=== PATIENT | male | born 1940 | race Caucasian/White ===

== ENCOUNTER 2021-01-04 12:28 | Emergency (ER) | payer MEDICARE ==
[~2021-01-04] VITALS: Ht 180.3 cm; Wt 59.0 kg
[2021-01-04 14:03] LABS: BASOPHILS ABSOLUTE AUTO 0.03 K/mm3 (0.00-0.23); BASOPHILS PERCENT AUTO 0 % (0-2); EOSINOPHILS ABSOLUTE AUTO 0.01 K/mm3 (0.00-0.68); EOSINOPHILS PERCENT AUTO 0 % (0-6); Hematocrit 39.8 % (37.0-53.0); Hemoglobin 13.1 g/dL (13.5-17.5); IMMATURE GRAN ABSOLUTE AUTO 0.04 K/mm3 (0.00-0.10); IMMATURE GRAN PERCENT AUTO 0 % (0-1); LYMPHOCYTES ABSOLUTE AUTO 0.78 K/mm3 (0.84-5.20); LYMPHOCYTES PERCENT AUTO 8 % (21-46); MONOCYTES ABSOLUTE AUTO 0.56 K/mm3 (0.16-1.47); MONOCYTES PERCENT AUTO 6 % (4-13); Mean Corpuscular HGB 31.3 pg (26.0-34.0); Mean Corpuscular HGB Conc 32.9 g/dL (31.5-36.5); Mean Corpuscular Volume 95 fL (80-100); Mean Platelet Volume 10.2 fL (9.1-12.4); NEUTROPHILS ABSOLUTE AUTO 7.87 K/mm3 (1.96-9.15); NEUTROPHILS PERCENT AUTO 85 % (41-73); Platelet Count 287 K/mm3 (150-400); RDW Coefficient Variation 13.3 % (11.7-14.2); RDW Standard Deviation 46.5 fL (35.1-46.3); Red Blood Cell Count 4.19 M/mm3 (4.30-5.90); White Blood Cell Count 9.29 K/mm3 (4.00-11.30)
[2021-01-04 14:25] LABS: Alanine Aminotransfer (ALT/SGP 25 U/L (12-78); Albumin, Blood 3.9 g/dL (3.4-5.0); Albumin/Globulin Ratio 1.1 (0.8-1.8); Alk Phos 95 U/L (50-136); Anion Gap 7 mmol/L (6-16); Aspartate Aminotrans (AST/SGOT 28 U/L (12-37); Bilirubin, Total 0.8 mg/dL (0.1-1.0); Blood Urea Nitrogen 21 mg/dL (8-24); Bun/Creatinine Ratio 23.4 (12.0-20.0); CO2, Blood 27 mmol/L (21-32); Calcium, Blood 9.1 mg/dL (8.5-10.1); Chloride, Blood 105 mmol/L (98-108); Globulin, Blood 3.7 g/dL (2.2-4.0); Glomerular Filtration Rate >60 (60-); Glucose, Blood 116 mg/dL (70-99); Potassium, Blood 4.6 mmol/L (3.5-5.5); Sodium, Blood 139 mmol/L (136-145); Total Protein, Blood 7.6 g/dL (6.4-8.2)
[2021-01-04 16:22] LABS: Source, Urine Clean Catch
[2021-01-04 16:26] LABS: Appearance, Urine Hazy (Clear); Bilirubin, Urine Neg (Neg); Blood, Urine 4+ (Neg); Color, Urine Yellow (P-Yellow); Glucose Qualitative, Urine Neg (Neg); Ketones, Urine Neg (Neg); Leukocyte Esterase, Urine Neg (Neg); Nitrite, Urine Neg (Neg); Protein, Urine Neg (Neg); Specific Gravity, Urine 1.015 (1.003-1.022); Urobilinogen, Urine NORM (Normal)
[2021-01-04 16:39] LABS: Bacteria Rare /hpf; Red Blood Cells, Urine 25-50 /hpf (0-2); Squamous Epithelial Cells Few /hpf (Few); White Blood Cells, Urine 0-2 /hpf (0-5)
[2021-01-04] MEDS ORDERED: TAMS.4ER PO (17:40)
== END 2021-01-04 18:06 | disposition home or self-care (01) ==
LOC: ER 12:28
PROVIDERS: Physician Assistant
DX: R33.8 Other retention of urine (principal); R31.29 Other microscopic hematuria; N13.30 Unspecified hydronephrosis
CPT/HCPCS: 51701; 74177; 80053; 81001; 83690; 85025; 99284-25; A9270; Q9967

== ENCOUNTER 2021-02-10 10:46 | Emergency (ER) | payer MEDICARE ==
[~2021-02-10] VITALS: Ht 180.3 cm; Wt 48.5 kg
[~2021-02-10 10:46] MED LIST: TAMS.4ER PO
[2021-02-10 13:00] LABS: Source, Urine Clean Catch
[2021-02-10 13:06] LABS: Appearance, Urine Clear (Clear); Bilirubin, Urine Neg (Neg); Blood, Urine 3+ (Neg); Color, Urine Yellow (P-Yellow); Glucose Qualitative, Urine Neg (Neg); Ketones, Urine Neg (Neg); Leukocyte Esterase, Urine 2+ (Neg); Nitrite, Urine Neg (Neg); Protein, Urine 1+ (Neg); Specific Gravity, Urine 1.015 (1.003-1.022); Urobilinogen, Urine NORM (Normal)
[2021-02-10 13:20] LABS: Bacteria Mod /hpf; Squamous Epithelial Cells Rare /hpf (Few)
[2021-02-10] MEDS ORDERED: CEPH500 PO (13:28)
== END 2021-02-10 15:00 | disposition home or self-care (01) ==
LOC: ER 10:46
PROVIDERS: Physician Assistant
DX: N40.1 Benign prostatic hyperplasia with lower urinary tract symptoms (principal); N13.8 Other obstructive and reflux uropathy; Z79.899 Other long term (current) drug therapy; Z87.891 Personal history of nicotine dependence
CPT/HCPCS: 51702; 81001; 87077; 87086; 87186; 99283-25; A9270

== ENCOUNTER 2021-03-26 18:28 | Inpatient (IN) | payer MEDICARE, OTHER ==
[~2021-03-26] VITALS: Ht 180.3 cm; Wt 52.0 kg
[~2021-03-26 18:28] MED LIST changes: +CEPH500 PO
[2021-03-26 19:32] LABS: BASOPHILS ABSOLUTE AUTO 0.03 K/mm3 (0.00-0.23); BASOPHILS PERCENT AUTO 0 % (0-2); EOSINOPHILS PERCENT AUTO 0 % (0-6); Hematocrit 42.6 % (37.0-53.0); IMMATURE GRAN ABSOLUTE AUTO 0.06 K/mm3 (0.00-0.10); IMMATURE GRAN PERCENT AUTO 0 % (0-1); LYMPHOCYTES ABSOLUTE AUTO 0.65 K/mm3 (0.84-5.20); LYMPHOCYTES PERCENT AUTO 4 % (21-46); MONOCYTES ABSOLUTE AUTO 0.82 K/mm3 (0.16-1.47); MONOCYTES PERCENT AUTO 5 % (4-13); Mean Corpuscular HGB 30.9 pg (26.0-34.0); Mean Corpuscular HGB Conc 32.9 g/dL (31.5-36.5); Mean Corpuscular Volume 94 fL (80-100); Mean Platelet Volume 10.2 fL (9.1-12.4); NEUTROPHILS ABSOLUTE AUTO 14.36 K/mm3 (1.96-9.15); NEUTROPHILS PERCENT AUTO 90 % (41-73); Platelet Count 283 K/mm3 (150-400); RDW Coefficient Variation 13.3 % (11.7-14.2); RDW Standard Deviation 46.3 fL (35.1-46.3); Red Blood Cell Count 4.53 M/mm3 (4.30-5.90); White Blood Cell Count 15.92 K/mm3 (4.00-11.30)
[2021-03-26 19:51] LABS: Albumin, Blood 3.9 g/dL (3.4-5.0); Bilirubin, Total 0.6 mg/dL (0.1-1.0); Bun/Creatinine Ratio 25.4 (12.0-20.0); Creatinine, Blood 1.26 mg/dL (0.60-1.20); Globulin, Blood 3.9 g/dL (2.2-4.0); Potassium, Blood 5.4 mmol/L (3.5-5.5); Total Protein, Blood 7.8 g/dL (6.4-8.2)
[2021-03-26 20:19] LABS: Source, Urine Clean Catch
[2021-03-26 20:23] LABS: Appearance, Urine Cloudy (Clear); Bilirubin, Urine Neg (Neg); Blood, Urine Neg (Neg); Color, Urine Yellow (P-Yellow); Glucose Qualitative, Urine Neg (Neg); Ketones, Urine Neg (Neg); Leukocyte Esterase, Urine 3+ (Neg); Nitrite, Urine Pos (Neg); Protein, Urine 4+ (Neg); Specific Gravity, Urine 1.015 (1.003-1.022); Urobilinogen, Urine NORM (Normal)
[2021-03-26 20:32] LABS: Bacteria Many /hpf; Triple Phosphate Crystals Many /hpf
[2021-03-26 20:34] LABS: Amorphous Light (0-Heavy); Red Blood Cells, Urine 0-2 /hpf (0-2)
[2021-03-26 20:35] LABS: Squamous Epithelial Cells Rare /hpf (Few)
[2021-03-27 05:29] LABS: BASOPHILS ABSOLUTE AUTO 0.01 K/mm3 (0.00-0.23); BASOPHILS PERCENT AUTO 0 % (0-2); EOSINOPHILS PERCENT AUTO 0 % (0-6); Hemoglobin 11.3 g/dL (13.5-17.5); IMMATURE GRAN ABSOLUTE AUTO 0.04 K/mm3 (0.00-0.10); IMMATURE GRAN PERCENT AUTO 0 % (0-1); LYMPHOCYTES ABSOLUTE AUTO 0.35 K/mm3 (0.84-5.20); LYMPHOCYTES PERCENT AUTO 3 % (21-46); MONOCYTES ABSOLUTE AUTO 0.65 K/mm3 (0.16-1.47); MONOCYTES PERCENT AUTO 6 % (4-13); Mean Corpuscular HGB 31.3 pg (26.0-34.0); Mean Corpuscular HGB Conc 33.2 g/dL (31.5-36.5); Mean Corpuscular Volume 94 fL (80-100); Mean Platelet Volume 10.3 fL (9.1-12.4); NEUTROPHILS ABSOLUTE AUTO 9.21 K/mm3 (1.96-9.15); NEUTROPHILS PERCENT AUTO 90 % (41-73); Platelet Count 231 K/mm3 (150-400); RDW Coefficient Variation 13.6 % (11.7-14.2); Red Blood Cell Count 3.61 M/mm3 (4.30-5.90); White Blood Cell Count 10.26 K/mm3 (4.00-11.30)
[2021-03-27 05:40] LABS: Alanine Aminotransfer (ALT/SGP 20 U/L (12-78); Albumin, Blood 3.1 g/dL (3.4-5.0); Albumin/Globulin Ratio 0.9 (0.8-1.8); Alk Phos 90 U/L (50-136); Anion Gap 5 mmol/L (6-16); Aspartate Aminotrans (AST/SGOT 28 U/L (12-37); Bilirubin, Total 0.4 mg/dL (0.1-1.0); Blood Urea Nitrogen 36 mg/dL (8-24); CO2, Blood 26 mmol/L (21-32); Calcium, Blood 8.6 mg/dL (8.5-10.1); Chloride, Blood 105 mmol/L (98-108); Creatinine, Blood 1.09 mg/dL (0.60-1.20); Globulin, Blood 3.3 g/dL (2.2-4.0); Glomerular Filtration Rate >60 (60-); Glucose, Blood 147 mg/dL (70-99); Potassium, Blood 4.5 mmol/L (3.5-5.5); Sodium, Blood 136 mmol/L (136-145); Total Protein, Blood 6.4 g/dL (6.4-8.2)
--- NOTE | 2021-03-27 16:50 | NUR ---
Mr Salas Barr is a 80 year old male with a history of enlargement of prostate and chronic maya catheter used who is admitted with lower abdominal pain. PER ER Report patient was initially presented with abdominal pain and buring at pelvic area. ER evaluation indicate lactic acid of 4.3 , WBC 97620, UA shows 3+ leukocytes esterase and cloudy urine , CT of abodmen and pelvic shows cystitis. patient was diagnosed with UTI and sepsis. she was transfered to medical floor for further evaluation and treatment. During admission assessment , patient is alert and oriented x3 with mild confusion. He reports that abdomen pain started on Angust 10 when he was brought to [facility] for assesstment and treatment . Reports that he was subsequently diagnozed with enlarged prostate and has been taking medication one pill a day . States that he sometimes forgot to take his medication. Described pain as buring at the lower abdomen and the groin area. Patient look malnourished and reports that meals on wheel sometimes comes to deliver food at his trailer where he currently live with his nephew. Denies any headache , dizziness , chestpain , or nausea . Patient was oriented to his room and how to use call light. Cardiac ( Tele) monitor was placed . SBP above 90.On room air,no SOB noted. Mild skin opening noted at coccyx , miplex was applied. Maya cath in place, draining clear yellow urine. Continue to monitor.
--- NOTE | 2021-03-28 04:57 | NUR ---
80 year old MAle with urinary obstruction indwelling maya cath since 12/2020 has sepsis UTI. Maya changed in ER & on abx to tx. C & S pending. PT recieved 1.5 l NS on medical floor. 650 ml urine out. ABD CT done. Shows recal impaction & PT says hx of chronic constipation but doesnt take daily bowel care. Prune juice given senna Colace MOM & dulcolax rectal suppository. Very thin with major WT loss. Alert pleasant has Nephew who lives with him, needs assist with care. Await response from bowel care. PT drank multiple ensures. Likes puddings.
--- NOTE | 2021-03-28 06:44 | NUR ---
PT had large pelleted stool about a hour after dulcolax suppository. Unsteady on feel has maya cath used bedside commode, bed alarm.
--- NOTE | 2021-03-28 18:31 | NUR ---
Alert and oriented x3 , able to make needs known. C/O abodmen pain , described pain as gas pain 01/04, received a new order for simethicone 80 mg po , it was given and patient expressed relief. vital signs are stable. Liriano cath is patent with clear yellow urine. Patient is malnourished and was encouraged to increase po fluid and food intake.Tele monitor on ,normal sinus ryhthm at 80. Denies any chest pain, dizzines and SOB. Continue on bowel med . call appropriately and call light within reach. Continue to monitor.
--- NOTE | 2021-03-29 01:57 | NUR ---
rt wrist iv saline lock present not doc
[2021-03-29 05:02] LABS: BASOPHILS ABSOLUTE AUTO 0.02 K/mm3 (0.00-0.23); BASOPHILS PERCENT AUTO 0 % (0-2); EOSINOPHILS ABSOLUTE AUTO 0.08 K/mm3 (0.00-0.68); EOSINOPHILS PERCENT AUTO 1 % (0-6); Hematocrit 31.6 % (37.0-53.0); Hemoglobin 10.4 g/dL (13.5-17.5); IMMATURE GRAN ABSOLUTE AUTO 0.01 K/mm3 (0.00-0.10); IMMATURE GRAN PERCENT AUTO 0 % (0-1); LYMPHOCYTES ABSOLUTE AUTO 0.45 K/mm3 (0.84-5.20); LYMPHOCYTES PERCENT AUTO 8 % (21-46); MONOCYTES ABSOLUTE AUTO 0.56 K/mm3 (0.16-1.47); MONOCYTES PERCENT AUTO 10 % (4-13); Mean Corpuscular HGB 31.1 pg (26.0-34.0); Mean Corpuscular HGB Conc 32.9 g/dL (31.5-36.5); Mean Corpuscular Volume 95 fL (80-100); NEUTROPHILS ABSOLUTE AUTO 4.46 K/mm3 (1.96-9.15); NEUTROPHILS PERCENT AUTO 80 % (41-73); Platelet Count 182 K/mm3 (150-400); RDW Coefficient Variation 13.6 % (11.7-14.2); RDW Standard Deviation 47.1 fL (35.1-46.3); Red Blood Cell Count 3.34 M/mm3 (4.30-5.90); White Blood Cell Count 5.58 K/mm3 (4.00-11.30)
[2021-03-29 05:25] LABS: Alanine Aminotransfer (ALT/SGP 19 U/L (12-78); Albumin, Blood 2.7 g/dL (3.4-5.0); Albumin/Globulin Ratio 0.8 (0.8-1.8); Alk Phos 86 U/L (50-136); Anion Gap 4 mmol/L (6-16); Aspartate Aminotrans (AST/SGOT 30 U/L (12-37); Bilirubin, Total 0.3 mg/dL (0.1-1.0); Blood Urea Nitrogen 26 mg/dL (8-24); Bun/Creatinine Ratio 32.4 (12.0-20.0); CO2, Blood 28 mmol/L (21-32); Calcium, Blood 8.8 mg/dL (8.5-10.1); Chloride, Blood 104 mmol/L (98-108); Globulin, Blood 3.5 g/dL (2.2-4.0); Glomerular Filtration Rate >60 (60-); Glucose, Blood 103 mg/dL (70-99); Magnesium, Blood 2.4 mg/dL (1.6-2.4); Phosphorus, Blood 3.1 mg/dL (2.5-4.9); Potassium, Blood 4.4 mmol/L (3.5-5.5); Sodium, Blood 136 mmol/L (136-145); Total Protein, Blood 6.2 g/dL (6.4-8.2)
--- NOTE | 2021-03-29 18:30 | NUR ---
Alert and oriented x3 , able to make needs known. Denies any pain . No nausea, abdomen gas , headache or fever noted. Vital signs are stable. One person assist with ADLs. worked with PT/OT for strength and endurance, improving . Malnourished , encouraged to increase meal intake . Liriano cath is patent , draning clear yellow urine . Continue on tele monitor , experienced tachy at 120 BUT was back normal sinus ryhthm when at rest. Call appropriately and call light within reach. Continue to monitor.
[2021-03-30 04:54] LABS: BASOPHILS ABSOLUTE AUTO 0.03 K/mm3 (0.00-0.23); BASOPHILS PERCENT AUTO 1 % (0-2); EOSINOPHILS ABSOLUTE AUTO 0.12 K/mm3 (0.00-0.68); EOSINOPHILS PERCENT AUTO 2 % (0-6); Hematocrit 32.6 % (37.0-53.0); Hemoglobin 10.7 g/dL (13.5-17.5); IMMATURE GRAN ABSOLUTE AUTO 0.01 K/mm3 (0.00-0.10); IMMATURE GRAN PERCENT AUTO 0 % (0-1); LYMPHOCYTES ABSOLUTE AUTO 0.66 K/mm3 (0.84-5.20); LYMPHOCYTES PERCENT AUTO 13 % (21-46); MONOCYTES ABSOLUTE AUTO 0.48 K/mm3 (0.16-1.47); MONOCYTES PERCENT AUTO 9 % (4-13); Mean Corpuscular HGB Conc 32.8 g/dL (31.5-36.5); Mean Corpuscular Volume 95 fL (80-100); NEUTROPHILS ABSOLUTE AUTO 3.96 K/mm3 (1.96-9.15); NEUTROPHILS PERCENT AUTO 75 % (41-73); Platelet Count 193 K/mm3 (150-400); RDW Coefficient Variation 13.5 % (11.7-14.2); RDW Standard Deviation 46.7 fL (35.1-46.3); Red Blood Cell Count 3.45 M/mm3 (4.30-5.90); White Blood Cell Count 5.26 K/mm3 (4.00-11.30)
--- NOTE | 2021-03-30 07:31 | NUR ---
FRANCHESKA WAS ALERT TO SELF AND PLACE. HOPING TO SEE HIS NIECES TODAY. PLEASANT AND COOPERATIVE WITH HIS CARE. HE APPEARS LONELY. DISCRIPTION OF THE HOME HE AND HIS NEPHEW ARE LIVING IN DOES NOT SOUND HEALTHY OR SAFE. PATIENT COMPLAINED OF BLOATING, BUT DID NOT WANT HIS SIMETHECONE
--- NOTE | 2021-03-30 16:52 | NUR ---
PRIOR TO ADMIT PT. LIVING IN TRAILER WITH NEPHEW CHULA. PT. DESCRIBES THE CONDITIONS THERE TO BE VERY DIRTY AND THE TRAILER BEING OVERLY FULL (HOARDING). NIECE JADIEL HAS ASSISTED PT. WITH TRANSPORTATION AND SHE CHECKS IN ON HIM OFTEN PER PATIENT. PT. STATED TO CARE MANAGEMENT THAT HE HAS BEEN RECEIVING MEALS ON WHEELS. DURING A CONVERSATION THIS AM, HE MENTIONED NOT EATING MUCH AT HOME BECAUSE LITTLE IS AVAILABLE. HE HAS ALSO HAD A LACK OF APPETITE. VISITED WITH PATIENT FOR QUITE SOMETIME THIS AM. WE DISCUSSED HIS PREVIOUS LIVING SITUATION, CIRCUMSTANCES WITH HIS FAMILY, AND HIS DECLINE IN CONDITION OVER THE YEARS, AND MOST NOTABLY, THE LAST FEW MONTHS. HE CONSISTENTLY BROUGHT THE CONVERSATION BACK TO HIS LACK OF UNDERSTANDING IN HOW HE "GOT HERE". HE STATED THAT HE HAS LIVED A VERY HEALTHY LIFESTYLE. HE HAS BEEN INTENTIONAL ABOUT HIS CHOICES THROUGHOUT HIS LIFE THEY RELATE TO HIS HEALTH. LISTENED MR. CRUZ DISCUSSED HIS CONVERSATIONS WITH DR. STREETER AND HIS THOUGHTS ON THE POSSIBILITY THAT HE MIGHT HAVE CANCER. PT. SHOWED ME HOW THIN HIS LEGS HAVE GOTTEN. HE STATES THAT HE PREVIOUSLY WEIGHED UPWARDS OF 180 LBS. QUITE THE DIFFERENCE FROM HIS 108LB FRAME NOW. PT. DISCUSSED HIS DESIRE TO IMPROVE HIS STRENGTH WITH PT. ENCOURAGED HIM TO DO THAT. WE DISCUSSED THAT IN HIS CURRENT STATE HE IS AT RISK FOR FALLING. HE AGREED THAT HE WILL NEED TO BE CAREFUL AND UNDERSTANDS THAT HE WILL NEED ADDITIONAL SUPPORT AT TIME OF DISCHARGE. I ASKED PT. PERMISSION TO CONTACT HIS NIECE JADIEL TO FIND OUT IF SHE MIGHT BE WILLING TO ALLOW PATIENT TO STAY WITH HER, AT LEAST WHILE HE IS IN THE PROCESS OF APPLYING FOR LONG-TERM ASSISTANCE WITH MEDICAID. PT. REQUESTED THAT HE TALK WITH HER THIS EVENING FIRST. WE DISCUSSED THE MEDICAID PROCESS AND PT. AGREED THAT SIGNING UP IS A GOOD IDEA. [facility] STAFF WILL ASSIST IN THIS PROCESS. I ASKED PT. IF HE WOULD BE AGREEABLE TO TALKING WITH PALLIATIVE CARE NURSE BENOIT. HE WAS AGREEABLE. PT. IS TRYING TO PROCESS HIS CURRENT CONDITION. IT WOULD BE HELPFUL TO HAVE PALLIATIVE CARE ASSIST IN SETTING GOALS OF CARE. DEPENDING ON HOSPITAL COURSE, HOSPICE MIGHT BE AN OPTION FOR PT. ADVISED MR. CRUZ THAT I WILL BE BACK TOMORROW TO VISIT WITH HIM MORE. HE THANKED ME AND STATED THAT HE WOULD APPRECIATE THAT. DISCUSSED CARE WITH BENOIT IN PALLIATIVE. HE WILL PLAN TO MEET WITH PT. THIS EVENING. Disposition is unknown at this point. Many social factors that will need to be addressed prior to discharge.
--- NOTE | 2021-03-30 17:08 | NUR ---
Alert and oriented x3 , up in the chair for both meals. Denies any pain. vital signs stable. Worked with PT/OT for strength and endurance , it was tolerated . patient walked with a walker on the hallway. Continue on ABO Bactrim DS for UTI , no adverse effects noted. Liriano cath is patent , draning clear yellow urine.Denies any SOB, Dizziness and chest pain. Call appropriately and call light within . Continue to monitor.
--- NOTE | 2021-03-30 17:11 | NUR ---
Spoke with Dr Menon, D/C Miladys Benson, and discussed case. Concerns for metastatic prostate cancer. Pt may benefit from supportive visits and discussion regarding goals of care. Pt sitting in chair upon arrival. Pt is A&O and denies pain at this time. Offered therapeutic listening as Pt expresses concerns with having difficulty getting pants on due to his Liriano Catheter. Pt reports living with his nephew in a triler at [facility]. Continued therapeutic listening. Assessed Pt's understanding of current condition and results of tests. Pt appears overwhelmed and slow to process information. Pt requires simple explanations. Answered questions and continued therapeutic listening. Pt reports plan to speak with his niece dannielle. Offered to call niece and assist with any concerns. Pt denies need at this time. Ended visit to allow Pt to continue processing information. Spoke with Pt's Primary RN Phong and discussed case. Palliative Care will F/U for supportive and therapeutic visits.
[2021-03-31 06:50] LABS: BASOPHILS ABSOLUTE AUTO 0.03 K/mm3 (0.00-0.23); BASOPHILS PERCENT AUTO 1 % (0-2); EOSINOPHILS ABSOLUTE AUTO 0.12 K/mm3 (0.00-0.68); EOSINOPHILS PERCENT AUTO 2 % (0-6); Hematocrit 32.2 % (37.0-53.0); Hemoglobin 10.7 g/dL (13.5-17.5); IMMATURE GRAN ABSOLUTE AUTO 0.02 K/mm3 (0.00-0.10); IMMATURE GRAN PERCENT AUTO 0 % (0-1); LYMPHOCYTES ABSOLUTE AUTO 0.52 K/mm3 (0.84-5.20); LYMPHOCYTES PERCENT AUTO 9 % (21-46); MONOCYTES ABSOLUTE AUTO 0.56 K/mm3 (0.16-1.47); MONOCYTES PERCENT AUTO 9 % (4-13); Mean Corpuscular HGB 31.7 pg (26.0-34.0); Mean Corpuscular HGB Conc 33.2 g/dL (31.5-36.5); Mean Corpuscular Volume 95 fL (80-100); Mean Platelet Volume 10.8 fL (9.1-12.4); NEUTROPHILS ABSOLUTE AUTO 4.85 K/mm3 (1.96-9.15); NEUTROPHILS PERCENT AUTO 80 % (41-73); Platelet Count 245 K/mm3 (150-400); RDW Coefficient Variation 13.6 % (11.7-14.2); RDW Standard Deviation 47.7 fL (35.1-46.3); Red Blood Cell Count 3.38 M/mm3 (4.30-5.90)
--- NOTE | 2021-03-31 17:07 | NUR ---
Update 03/31/21: See palliative care note. Pt. is processing his recent changes in health. He states that he is not sure what he wants to do moving forward yet. At this point he does not have an appropriate living situation. Medicaid process started with pt. Per [facility] staff, patient had Medicaid previously. Possible that pt. will be able to get through the Medicaid process faster. We are hopeful that will be the case. Spoke with patient's niece Janie, she is unable to allow pt. to live with her currently. She denied any other family member that could potentially care for patient while waiting for Medicaid. At this point, pt. is not safe or appropriate to discharge to his previous living situation. We will continue to work quickly to find placement and secure Medicaid.
--- NOTE | 2021-03-31 18:14 | NUR ---
Patient is alert and oriented x3, able to make needs known. C/O CONSTIPATION, sylvie , prune juice and Dulcolax supp was given and patient had extra large BM. Vital signs are stable. Walked hallway for five minutes with significant strength and endurance. Continue on tele monitor , with mormal sinus rythm. Bed and chair alarm on. Liriano cath is patent, draning clear yellow urine.Continue to monitor.
--- NOTE | 2021-04-01 02:20 | NUR ---
HYDROELECTRIC OPERATOR SUMMARY PATIENT HAD A FAIR SHIFT. STILL COMPLAINING OF ABDOMINAL PAIN. HE WAS GIVEN MEDS TO HELP WITH THAT SEE EMAR. HE ALSO HAD ABDOMINAL XRAY. CONCRETE PAVEMENT INSTALLER HOSPITALIST INFORMED,SEE ORDERS. WILL CONTINUE TO MONITOR PATIENT.
[2021-04-01 05:44] LABS: BASOPHILS ABSOLUTE AUTO 0.04 K/mm3 (0.00-0.23); BASOPHILS PERCENT AUTO 1 % (0-2); EOSINOPHILS ABSOLUTE AUTO 0.05 K/mm3 (0.00-0.68); EOSINOPHILS PERCENT AUTO 1 % (0-6); Hematocrit 30.7 % (37.0-53.0); Hemoglobin 10.2 g/dL (13.5-17.5); IMMATURE GRAN ABSOLUTE AUTO 0.02 K/mm3 (0.00-0.10); IMMATURE GRAN PERCENT AUTO 0 % (0-1); LYMPHOCYTES ABSOLUTE AUTO 0.46 K/mm3 (0.84-5.20); LYMPHOCYTES PERCENT AUTO 6 % (21-46); MONOCYTES ABSOLUTE AUTO 0.71 K/mm3 (0.16-1.47); MONOCYTES PERCENT AUTO 10 % (4-13); Mean Corpuscular HGB 31.3 pg (26.0-34.0); Mean Corpuscular HGB Conc 33.2 g/dL (31.5-36.5); Mean Corpuscular Volume 94 fL (80-100); Mean Platelet Volume 9.9 fL (9.1-12.4); NEUTROPHILS ABSOLUTE AUTO 6.11 K/mm3 (1.96-9.15); NEUTROPHILS PERCENT AUTO 83 % (41-73); Platelet Count 210 K/mm3 (150-400); RDW Coefficient Variation 13.4 % (11.7-14.2); RDW Standard Deviation 46.5 fL (35.1-46.3); Red Blood Cell Count 3.26 M/mm3 (4.30-5.90); White Blood Cell Count 7.39 K/mm3 (4.00-11.30)
[2021-04-01 11:38] LABS: Albumin, Blood 3.1 g/dL (3.4-5.0); Anion Gap 4 mmol/L (6-16); Blood Urea Nitrogen 20 mg/dL (8-24); Bun/Creatinine Ratio 21.1 (12.0-20.0); CO2, Blood 30 mmol/L (21-32); Calcium, Blood 8.8 mg/dL (8.5-10.1); Chloride, Blood 99 mmol/L (98-108); Creatinine, Blood 0.95 mg/dL (0.60-1.20); Glomerular Filtration Rate >60 (60-); Glucose, Blood 146 mg/dL (70-99); Phosphorus, Blood 3.4 mg/dL (2.5-4.9); Potassium, Blood 4.6 mmol/L (3.5-5.5); Sodium, Blood 133 mmol/L (136-145)
--- NOTE | 2021-04-01 18:18 | NUR ---
Patient is alert and oriented x3 , c/o abdomen pain ,tramadol , tylenol and semithicone was given with some relief. Zofran was given twice for nausea , it was effective. Vital signs are stable . walked on hallway about five minutes using a walker on a staedy gait. Continue on ABO therapy , no adverse effects noted.Continue to monitor.
--- NOTE | 2021-04-02 00:35 | NUR ---
GROUP LEADER SEMICONDUCTOR TESTING SUMMARY PATIENT HAD A FAIR SHIFT. SO FAR HE HAS BEEN CALM. HE DID NOT LODGE ANY COMPLAINT. WILL CONTINUE TO MONITOR HIM.
[2021-04-02 06:00] LABS: BASOPHILS ABSOLUTE AUTO 0.02 K/mm3 (0.00-0.23); BASOPHILS PERCENT AUTO 0 % (0-2); EOSINOPHILS ABSOLUTE AUTO 0.05 K/mm3 (0.00-0.68); EOSINOPHILS PERCENT AUTO 1 % (0-6); Hematocrit 30.8 % (37.0-53.0); Hemoglobin 10.4 g/dL (13.5-17.5); IMMATURE GRAN ABSOLUTE AUTO 0.04 K/mm3 (0.00-0.10); IMMATURE GRAN PERCENT AUTO 0 % (0-1); LYMPHOCYTES ABSOLUTE AUTO 0.36 K/mm3 (0.84-5.20); LYMPHOCYTES PERCENT AUTO 4 % (21-46); MONOCYTES ABSOLUTE AUTO 0.76 K/mm3 (0.16-1.47); MONOCYTES PERCENT AUTO 8 % (4-13); Mean Corpuscular HGB 31.8 pg (26.0-34.0); Mean Corpuscular HGB Conc 33.8 g/dL (31.5-36.5); Mean Corpuscular Volume 94 fL (80-100); Mean Platelet Volume 9.8 fL (9.1-12.4); NEUTROPHILS ABSOLUTE AUTO 8.28 K/mm3 (1.96-9.15); NEUTROPHILS PERCENT AUTO 87 % (41-73); Platelet Count 240 K/mm3 (150-400); RDW Coefficient Variation 13.5 % (11.7-14.2); RDW Standard Deviation 46.5 fL (35.1-46.3); Red Blood Cell Count 3.27 M/mm3 (4.30-5.90); White Blood Cell Count 9.51 K/mm3 (4.00-11.30)
[2021-04-02 06:42] LABS: Albumin, Blood 3.1 g/dL (3.4-5.0); Anion Gap 6 mmol/L (6-16); Blood Urea Nitrogen 24 mg/dL (8-24); Bun/Creatinine Ratio 23.8 (12.0-20.0); CO2, Blood 30 mmol/L (21-32); Calcium, Blood 9.1 mg/dL (8.5-10.1); Chloride, Blood 97 mmol/L (98-108); Creatinine, Blood 1.01 mg/dL (0.60-1.20); Glomerular Filtration Rate >60 (60-); Glucose, Blood 114 mg/dL (70-99); Phosphorus, Blood 3.7 mg/dL (2.5-4.9); Potassium, Blood 4.6 mmol/L (3.5-5.5); Sodium, Blood 133 mmol/L (136-145)
--- NOTE | 2021-04-02 18:22 | NUR ---
Alert and oriented x3 , anxious and complained of abdomen gas pain , simethicone was given as scheduled , it was helpful. Zofran was given for nausea and it was effective. Patient walked hallway three times and ambulated on a steady gait. vital signs are stable. Liriano cath is patent , draning clear yellow urine. PATIENT is impulsive and do not used call light. Attempted to get out of chair and bed multiple times to exercise and was redirected to use call light. Continue on tele monitor with normal sinus rthym at rest and slight tachy with activity. Continue to monitor.
--- NOTE | 2021-04-03 18:06 | NUR ---
Alert and oriented x3, anxious and talked about not able to swallow. Discussed with a pateint about changing for text and he resist. One person assist with ADLS. Used walker for ambuulation , walked on the hallway twice with steady gait. vital signs are stable. Continue on simethicone for abdomen , it was effective. Chair and bed alarm on at times . FAILED to used call light for his needs. Attempted multiple times to get of chair and bed but was attended to and redirected. Continue to monitor.
--- NOTE | 2021-04-04 05:23 | NUR ---
SHIFT SUMMARY PT AWAKE MUCH OF THE NIGHT. FREQUENTLY SETTING OFF BED OR CHAIR ALARM TO TRANSFER BETWEEN THE TWO. RECLINER CHAIR PROVIDED FOR PT. PT REMAINED IN THE RECLINER FOR THE LONGEST TIME. PT DID COMPLAIN OF GAS PAINS BUT REPORTED IT TO BE MINIMAL THIS EVENING. SCHEDULED SIMETHICONE GIVEN. PT REPORTS THAT "SOMETHING" HAPPENED YESTERDAY WHILE LAYING IN BED AND THAT HE HAS BEEN HAVING SOME DIFFICULTY SWALLOWING SINCE THEN. PT REFUSED PART OF HIS NIGHT TIME MEDICATIONS. PT DECLINED ANY PAIN MEDICATION. VITAL SIGNS STABLE. NO ACUTE CHANGES THIS EVENING. WILL CONTINUE TO MONITOR.
--- NOTE | 2021-04-04 17:37 | NUR ---
Spoke with Dr Newby prior to Pt visit and discussed case. Pt sitting in chair upon arrival. Pt denies pain and dyspnea at this time. Engaged in therapeutic conversation regarding concerns of cancer. Pt reacts in a manner of this being the first time hearing this information. Pt reports he does not remember having conversation with this RN last week and with MDs of concern for cancer. Offered therapeutic listening and answered questions. Pt required slow and simple explanations. Pt appears to be struggling with processing information. Pt agreeable for this RN to call family to assist him with decisions. Attempted to call Pt's Niece Janie and left message with request for a return phone call. Palliative Care will remain available for therapeutic and supportive visits.
--- NOTE | 2021-04-04 18:51 | NUR ---
Alert and oriented x3 ,able to make needs known . Continue on simethicone for gas pain and it was effective. walked with PT/OT for strength and endurance. Dulcolax supp was given and patient had medium BM.Walked in hallway . Bed and chair alarm on at times. Impulsive and do not use call buttom for help. Continue to monitor.
[2021-04-05 05:33] LABS: BASOPHILS ABSOLUTE AUTO 0.05 K/mm3 (0.00-0.23); BASOPHILS PERCENT AUTO 1 % (0-2); EOSINOPHILS ABSOLUTE AUTO 0.05 K/mm3 (0.00-0.68); EOSINOPHILS PERCENT AUTO 1 % (0-6); Hematocrit 29.8 % (37.0-53.0); IMMATURE GRAN ABSOLUTE AUTO 0.01 K/mm3 (0.00-0.10); IMMATURE GRAN PERCENT AUTO 0 % (0-1); LYMPHOCYTES ABSOLUTE AUTO 0.45 K/mm3 (0.84-5.20); LYMPHOCYTES PERCENT AUTO 8 % (21-46); MONOCYTES ABSOLUTE AUTO 0.65 K/mm3 (0.16-1.47); MONOCYTES PERCENT AUTO 11 % (4-13); Mean Corpuscular HGB 31.3 pg (26.0-34.0); Mean Corpuscular HGB Conc 33.6 g/dL (31.5-36.5); Mean Corpuscular Volume 93 fL (80-100); Mean Platelet Volume 9.7 fL (9.1-12.4); NEUTROPHILS PERCENT AUTO 80 % (41-73); Platelet Count 280 K/mm3 (150-400); RDW Coefficient Variation 13.3 % (11.7-14.2); RDW Standard Deviation 46.3 fL (35.1-46.3); Red Blood Cell Count 3.19 M/mm3 (4.30-5.90); White Blood Cell Count 5.91 K/mm3 (4.00-11.30)
[2021-04-05 05:57] LABS: Anion Gap 6 mmol/L (6-16); Blood Urea Nitrogen 25 mg/dL (8-24); CO2, Blood 28 mmol/L (21-32); Calcium, Blood 9.1 mg/dL (8.5-10.1); Chloride, Blood 100 mmol/L (98-108); Creatinine, Blood 1.04 mg/dL (0.60-1.20); Glomerular Filtration Rate >60 (60-); Glucose, Blood 93 mg/dL (70-99); Potassium, Blood 4.1 mmol/L (3.5-5.5); Sodium, Blood 134 mmol/L (136-145)
--- NOTE | 2021-04-05 06:32 | NUR ---
SHIFT SUMMARY PT IS AA&OX3. STAND BY ASSIST.PT DENIES PAIN OR DISCOMFORT THIS SHIFT. SCHEDULED SIMETHICONE FOR GAS PAIN GIVEN PER EMAR . ADLS PROVIDED, SAFETY MEASURES IN PLACE. WILL CONTINUE TO MONITOR.
--- NOTE | 2021-04-05 14:58 | NUR ---
Pt sitting in chair upon arrival. Pt's niece Janie at bedside along with Pt's sikh member Dr Allen. Engaged in therapeutic conversation regarding concerns for cancer. Discussed options and the impoortance assisting Pt with goals of care. Answered questions and offered therapeutic listening. Dr Allen also assists in conversations. Janie at times appears to struggle with staying on topice. Continued therapeutic conversation. Pt becomes slightly agitated and reports not wanting to make a decision right now. After a lengthy conversation Janie is reporting leaning towards biopsy in order to know what treatment options are available. Janie reports plan to continue conversation with Pt periodically. Palliative Care will remain available.
--- NOTE | 2021-04-05 18:22 | NUR ---
Alert and oriented x3 , able to make needs known . Denies any pain. One person assist with ADLS. Continue on simethicone for gas , no adverse effects noted. vital signs are stable. Call light within reach but never used it. HAD large BM.Continue to monitor.
--- NOTE | 2021-04-06 04:38 | NUR ---
SHIFT SUMMARY PT IS AA&OX3. ABLE TO MAKE NEEDS KNOWN. NO ACUTE CHANGES ON THIS SHIFT. PT C/O GASTRIC PAIN. PRN PAIN MED OFFERED, PT REFUSED. SCHEDULED SIMETHICONE ADMINISTERED WITH GOOD EFFECTS. PT AMBULATED TO THE END OF HALLWAY AND BACK TO ROOM. PT HAD A MEDIUM SIZE BM ON THIS SHIFT. STOOL WAS FORMED AND BROWN. ADLS PROVIDED, SAFETY MEASURES IN PLACE. WILL CONTINUE TO MONITOR.
[2021-04-06 04:59] LABS: BASOPHILS ABSOLUTE AUTO 0.04 K/mm3 (0.00-0.23); BASOPHILS PERCENT AUTO 1 % (0-2); EOSINOPHILS ABSOLUTE AUTO 0.08 K/mm3 (0.00-0.68); EOSINOPHILS PERCENT AUTO 2 % (0-6); Hematocrit 29.6 % (37.0-53.0); IMMATURE GRAN ABSOLUTE AUTO 0.02 K/mm3 (0.00-0.10); IMMATURE GRAN PERCENT AUTO 0 % (0-1); LYMPHOCYTES ABSOLUTE AUTO 0.47 K/mm3 (0.84-5.20); LYMPHOCYTES PERCENT AUTO 9 % (21-46); MONOCYTES ABSOLUTE AUTO 0.53 K/mm3 (0.16-1.47); MONOCYTES PERCENT AUTO 10 % (4-13); Mean Corpuscular HGB 31.8 pg (26.0-34.0); Mean Corpuscular HGB Conc 33.8 g/dL (31.5-36.5); Mean Corpuscular Volume 94 fL (80-100); Mean Platelet Volume 9.3 fL (9.1-12.4); NEUTROPHILS ABSOLUTE AUTO 4.04 K/mm3 (1.96-9.15); NEUTROPHILS PERCENT AUTO 78 % (41-73); Platelet Count 289 K/mm3 (150-400); RDW Coefficient Variation 13.4 % (11.7-14.2); RDW Standard Deviation 46.1 fL (35.1-46.3); Red Blood Cell Count 3.14 M/mm3 (4.30-5.90); White Blood Cell Count 5.18 K/mm3 (4.00-11.30)
[2021-04-06 05:36] LABS: Anion Gap 6 mmol/L (6-16); Blood Urea Nitrogen 27 mg/dL (8-24); Bun/Creatinine Ratio 27.2 (12.0-20.0); CO2, Blood 28 mmol/L (21-32); Calcium, Blood 8.8 mg/dL (8.5-10.1); Chloride, Blood 102 mmol/L (98-108); Creatinine, Blood 0.99 mg/dL (0.60-1.20); Glomerular Filtration Rate >60 (60-); Glucose, Blood 97 mg/dL (70-99); Potassium, Blood 4.3 mmol/L (3.5-5.5); Sodium, Blood 136 mmol/L (136-145)
--- NOTE | 2021-04-06 09:30 | NUR ---
Update 04/06/21: Faxed chart notes to [facility] for review of patients case. Requested return call to Dr. Newby. Patient's last visit with [facility] was 03/02/[address] Mayer.
--- NOTE | 2021-04-06 18:22 | NUR ---
Alert and oriented x3 , able to make needs known. c/o abdomen pain, tylenol and tramadol were given and it was effective. Had large BM. Ambulate in the hallway . Vital signs are stable. Continue to monitor.
--- NOTE | 2021-04-07 07:33 | NUR ---
FRANCHESKA WAS VERY TIRED LAST NIGHT. HE CRAWLED INTO BED AT 2130, AND SLEPT STRAIGHT THROUGH UNTIL 0600. 0600 MEDS WERE HELD UNTIL PATIENT WOKE UP. NO COMPLAINTS OF PAIN OVERNIGHT OTHER THAT USUAL C/O BLOATING AT BEDTIME
--- NOTE | 2021-04-07 17:48 | NUR ---
Alert and oriented x3 . c/o abdomen pain , Tylenol was given and it was effective. Simethicone was given for gas pain and it was effective. Ambulate in hallway with steady gait. vital signs are stable. In good mood and pleasant. continue to monitor.
--- NOTE | 2021-04-08 04:52 | NUR ---
SHIFT SUMMARY NO ACUTE CHANGES TO REPORT THIS SHIFT. PT HAS RESTED MOST OF THE NIGHT AND HAS DENIED NEEDS OR PAIN. ASSESSMENT REMAINS UNCHANGED, PT STILL AWAITING PLACMENT. BED IN LOWEST POSITION, CALL LIGHT WITHIN REACH.
--- NOTE | 2021-04-08 17:38 | NUR ---
SHIFT SUMMARY PATIENT ALERT AND ORIENTED THROUGHOUT THIS SHIFT. PATIENT IS A 1 ASSIST WITH FWW WHEN UP. PATIENT UP TO THE BATHROOM AND UP WALKING IN THE HALLWAY WITH STAFF MULTIPLE TIMES THIS SHIFT. PATIENT HAS A CX DAVILA WHICH IS DRAINING YELLOW URINE. PATIENT UP IN THE CHAIR THROUGHOUT MOST OF THIS SHIFT. PATIENT CURRENTLY SITTING IN CHAIR AWAITING DINNER.
--- NOTE | 2021-04-09 03:51 | NUR ---
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 PRESLEY PROMINENCES DUE TO MALNOURISHMENT. PT HAS DISTENDED ABD, BOWEL SOUNDS PRESENT. NO IV ACCESS NEEDED. PRANAY IS PLEASANT WITH STAFF AND COOPERATIVE WITH CARE. HE IS A 1PERSON ASSIST WITH GAIT BELT DUE TO IMBALANCE WHEN STANDING. CHRONIC DAVILA DRAINING CLEAR YELLOW URINE. AWAITING PLACEMENT.
--- NOTE | 2021-04-09 18:13 | NUR ---
SHIFT SUMMARY 80 YEAR AUTISTIC MALE ADMITTED FOR SEPSIS R/T UTI. PT HAS A CHRONIC DAVILA IN PLACE. PT APPEARS VERY FRAIL AND MALNURISHED. PT IS A&O, PLEASANT AND COOPERATIVE WITH CARE BUT ALSO FORGETTFULL AND IMPULSIVE, BED ALARM IN USE. PT HAS WHAT APPEARS TO BE A NEW DX OF PROSTATE CA WITH METS THAT HE HAS DECIDED NOT TO PURSUE TX FOR. PT WAS LIVING HOME WITH FAMILY AND IS CURRENTLY PENDING PLACEMENT FOR DISCHARGE. NO OTHER CHANGES THIS SHIFT.
--- NOTE | 2021-04-10 07:24 | NUR ---
SHIFT SUMMARY NO NEW CHANGES. VSS.
--- NOTE | 2021-04-10 17:32 | NUR ---
SHIFT SUMMARY 80 YEAR AUTISTIC MALE ADMITTED FOR SEPSIS R/T UTI. PT HAS A CHRONIC DAVILA IN PLACE. PT APPEARS VERY FRAIL AND MALNURISHED. PT WAS UP W/ FWW AND WALKED HALLS WITH SBA YESTERDAY AND TODAY AND TOLERATED VERY WELL. PT IS A&O, PLEASANT AND COOPERATIVE WITH CARE BUT ALSO FORGETTFULL AND IMPULSIVE, BED & CHAIR ALARM IN USE. PT HAS WHAT APPEARS TO BE A NEW DX OF PROSTATE CA WITH METS THAT HE HAS DECIDED NOT TO PURSUE TX FOR. PT WAS LIVING HOME WITH FAMILY AND IS CURRENTLY PENDING PLACEMENT FOR DISCHARGE. NO OTHER CHANGES THIS SHIFT.
--- NOTE | 2021-04-11 04:23 | NUR ---
SHIFT SUMMARY PRANAY HAD ONE EPISODE THIS EVENING OF CONFUSION, WHERE HE SOMEHOW TWISTED HIS PULL UP SIDWAYS AND GOT TANGLED IN HIS PAJAMAS. HE WAS EASILY REASSURED AND REDIRECTED. HE HAD A LARGE BM, WHICH HE WAS PARTLY INCONTINENT OF. C/O PAIN IN HIS ABD FROM GAS BUBBLE, HEARD PASSING GAS WHICH PROVIDED SOME RELIEF. VSS. NO IV ACCESS, ROOM AIR. A&0 X4, BUT WITHOUT INSIGHT TO LIVE INDEPENDENTLY. HE IS 1 PERSON SBA WITH FOUR WHEEL WALKER, HE LIKES TO TAKE WALKS ON THE UNIT.
--- NOTE | 2021-04-11 18:30 | NUR ---
SHIFT SUMMARY PT A/O X4 WITH AUTISM SPECTRUM DISORDER. PT UP IN THE CHAIR FOR THE MAJORITY OF THE SHIFT AND AMBULATES WITH SBA W/FWW/GB. HIS APPETITE IS VERY POOR TODAY. HE HAS ALSO EXPERIENCED SIGNIFICANT STOMACH PAIN TODAY DUE TO GAS PAINS. TREATED PER EMR. AWAITING PLACEMENT. VSS. NO IV ACCESS. WILL REPORT TO ALIZE TEE.
--- NOTE | 2021-04-12 05:03 | NUR ---
SHIFT SUMMARY: AOX3, COOPERATIVE WITH CARE. FOLLOWING INSTRUCTIONS ALL NIGHT. SNACKED A FEW TIMES WITH OUT COMPLAINTS OF STOMACH ACHES. TOOK MEDS PER ORDERS. CATH PATENT AND DRAINING. WENT TO SLEEP EARLY AND SLEPT WELL T/O NIGHT. VS WNL, AFEBRILE. NO ACUTE CHANGES TO REPORT. CALL LIGHT IN REACH. BED ALARM ON.
--- NOTE | 2021-04-12 17:05 | NUR ---
PATIENT A/OX3, UP WITH FWW AND SBA. WALKING INHALLS WITH STAFF TODAY. VSS, ON RA. NO ACUTE CHANGES THIS SHIFT. AWAITING CASING PULLER PLACEMENT. ENCOURAGING PO INTAKE.
--- NOTE | 2021-04-13 04:42 | NUR ---
SHIFT SUMMARY: NO ACUTE CHANGES OR CONCERNS TO NOTE. FOLLOW DIRECTIONS WELL, USES CALL LIGHT APPROPRIATLY. ATE A FEW PUDDINGS LAST NIGHT WITH NO COMPLAINTS OF PAIN OR DISCOMFORT. VS WNL, AFEBRILE. CALL LIGHT IN REACH.
--- NOTE | 2021-04-13 16:35 | NUR ---
SHIFT SUMMARY PT AWAKE AT START OF SHIFT. VERY PLEASANT AND TALKATIVE. UP TO CHAIR FOR MEALS. WALKED IN HALLS MULTIPLE TIMES, DOING EXTREMELY WELL. BURDEN IN TO SEE PT. NO NEW ORDERS PLACED. PT WAITING FOR INSURANCE TO APPROVE PLACEMENT. PT MALNURISHED, BUT EATING AND DRINKING WELL. DAVILA CATH IN PLACE FOR RETENSION, BPH, AND PROSTATE CA; PATENT AND DRAINING CL YELLOW. DENIES FURTHER NEEDS. CALL LT IN REACH.
--- NOTE | 2021-04-14 04:48 | NUR ---
SHIFT SUMMARY AOX3. SLOW TO RESPOND. HX AUTISM. NO ACUTE CHANGES THIS SHIFT. VSS. DENIES PAIN, N/V OR SOB. REPORTS GAS DISCOMFORT, MEDICATED c SCHEDULED SIMETHICONE. NO FURTHER DISCOMFORT REPORTED. LOLA PATENT & DRAINING. AWAITING SAFE DC PLAN. CALL LIGHT IN REACH.
--- NOTE | 2021-04-14 15:58 | NUR ---
Case conference with Amanda MENDEZ re: goals of care, obstacles to placement and s/s management. Planned with Amanda to make a joint visit with her tomorrow am to talk to pt about his goals, whether he would want to return to hospital for care for future acute issues and advanced care planning in light of his probable dx of prostate CA and current protein calorie malnutrion that has impaired his ability to seek other treatments.
--- NOTE | 2021-04-14 16:38 | NUR ---
SHIFT SUMMARY PATIENT IS ALERT AND ORIENTED X3. PATIENT IS A PLACEMENT ISSUE AND MEDICALLY STABLE. VITAL SIGNS REVIEWED. NO ACUTE EVENTS THIS SHIFT. PATIENT HAS NOT HAD ANY COMPLAINTS OF PAIN, SOB, NAUSEA, VOMITTING. WILL CONTINUE TO MONITOR UNTIL SHIFT CHANGE.
--- NOTE | 2021-04-15 04:50 | NUR ---
PT ALERT AND ORIENTED. RESTING ON BED QUIETLY. NO ACUTE DISTRESS OVERNIGHT
--- NOTE | 2021-04-15 16:47 | NUR ---
SHIFT SUMMARY PATIENT IS ALERT AND ORIENTED X3. PATIENT HAS BEEN PLEASENT AND COOPERATIVE WITH CARE THIS SHIFT. PATIENT HAS HAD NO ACUTE EVENTS THIS SHIFT. PATIENT HAS HAD NO COMPLAINTS OF PAIN, NAUSEA, SOB OR VOMITTING. PATIENT IS MEDICALLY STABLE AND IS CURRENTLY AWAITING PLACEMENT. VITAL SIGNS REVIEWED. CALL LIGHT IN PLACE. WILL MONITOR UNTIL SHIFT CHANGE.
--- NOTE | 2021-04-15 18:51 | NUR ---
Joint visit with Amanda YATES CM this am to discuss goals of care and hospice with pt as previously planned. Pt was agreeable, receptive and participatory in our conversation. I asked a number of questions in different ways to assess his understanding of his health status, his goals of care and his ability to make decisions for plan of care. Pt is clear that if he had acute issues in the future, that he would want to return to the hospital. He liked the idea of additional support and s/s management of hospice but clearly was overwhelmed by that idea also. He wants to go "day by day" and he is hopeful that he can get better and somehow gain nutritional status so that tx options could be considered. He does not like having an indwelling maya cath but verbalizes understanding that due to his bladder obstruction from probable prostate CA that he would suffer with distended bladder and inability to void if it were removed. He states his niece Janie would be his surrogate medical decision maker if he was not able to express his wishes. I am not certain that pt will be able to be decisive and I believe this is probably a life long trait. He verbalizes understanding of his severe malnutrition and prostate dx but also demonstrates denial of his current health issues and the impact on his life and care needs. He's agreeable to seeking placement where he will receive care and that has been worked on for a number of weeks now with limited choices and no resolution at this time. I reported on my visit to Dr alegria. RODNEY is investigating pt's neice and nephew at this time so there is concern for pt's niece being his surrogate medical decision maker. Pt could not name any other individual he would want to speak for him if he could not communicate or was too impaired to make decisions. [facility] will return if indicated/requested.
--- NOTE | 2021-04-16 04:34 | NUR ---
SHIFT SUMMARY PT ALERT AND ORIENTED. REALLY PLEASANT. NO COMPLAINT. CALL LIGHT WHITIN REACH. KEEP MONITORING
--- NOTE | 2021-04-16 17:58 | NUR ---
SHIFT SUMMARY PT AAOX3, FORGETFUL AT TIMES, PLEASANT AND COOPERATIVE TO CARE. ABLE TO MAKE NEEDS KNOWN. NO C/O PAIN OR ANY DISCOMFORT THIS SHIFT. NO C/O CP, SOB, OR N&V. PT HAD A LARGE BM THIS SHIFT. PT REQUIRES 1P SBA TO BATHROOM WITH A FWW. DAVILA CATH PATENT AND DRAINING TO GRAVITY. BED AT LOWEST POSITION. CALL LIGHT WITHIN REACH.
--- NOTE | 2021-04-17 06:26 | NUR ---
SHIFT SUMMARY PT RESTING ON BED QUIETLY. SLEEP MOSTLY ALL NIGHT. DID NOT COMPLAINING OF ANY PAIN.KEEP MONITORING
--- NOTE | 2021-04-17 17:04 | NUR ---
SHIFT SUMMARY PATIENT ALERT AND ORIENTED, PLEASNT AND COOPERATIVE WITH CARE. PATIENT GOT A SHOWER THIS AFTERNOON. PATIENT IS IN GOOD SPIRITS TODAY. NO ACUTE CHANGES. VITAL SIGNS STABLE. CALL LIGHT WITHIN REACH. THIS NURSE WILL CONTINUE TO CARE FOR THE PATIENT UNTIL SHIFT REPORT IS MADE TO THE ONCOMING NURSE.
--- NOTE | 2021-04-18 04:32 | NUR ---
SHIFT SUMMARY PT ALERT AND ORIENTED. NO ACUTE CHANGE OVERNIGHT
--- NOTE | 2021-04-18 09:37 | NUR ---
04/05/2021 Pt now has OHP coverage secondary to Medicare. 04/06/2021 [facility] states they would accept him but, he would need a diagnosis of dementia. He scored 24/30 on the SLUMS assessment. 04/08/2021 Tom from [facility]PS called to gather information on Salas due to his previous living situation and current admit dx in the hospital. I stated that his previous living situation was questionable, he was admitted at 108 lbs, malnourished and with the dx of sepsis. Pt's jessica handles his income who Salas does not seem to have access to. Pt's kristentobin ppreviously paid the nephew $300 a month and stated she used the rest to bring Salas food. (
--- NOTE | 2021-04-18 09:37 | NUR ---
I contacted our local [facility] to help with finding long-term care placement. They said he still needed to be interviewed. As far as I know there is no availability in [place]. I plan to call around to places in [place] today. I have also been contacted by RODNEY Sunday and today. RODNEY was going to call the patients room to interview the patient about his previous care.
--- NOTE | 2021-04-18 09:38 | NUR ---
On 04/15/2021 I attended a visit in the patients room with Palliative Care who asked the patient questions to gauge his understanding of his diagnosis and the possible outcome, and whether the patient would want to receive Hospice services. Last week (04/13/2021) I also called several facilities and Adult Foster Homes to inquire about openings for placement. [facility] will have a studio opening Mid April for a Medicaid patient. The other places did not have Medicaid openings or were at capacity. I also faxed over a packet last week to [facility] intake manager of case management to help assist in finding placement.
--- NOTE | 2021-04-18 15:14 | NUR ---
SHIFT SUMMARY NO ACUTE CHANGES TO PRESENT THIS SHIFT. PT STILL WAITING FOR PLACEMENT. VERY PLEASANT AND CO-OP WITH CARE. SBA TO CHAIR AND BACK TO BED. PT ABLE TO USE FWW WITH SBA TO GO FOR WALKS IN HALLS. DR HARRIS IN TO SEE PT THIS AM. BONE SCAN ORDERED FOR TOMORROW AM. [facility] CALLED TO REPORT THAT PT WOULD BE INJECTED AT 0800 AND SCAN TO BE DONE AT 11:30. PT REPORTED SLEEPING WELL LAST NIGHT. REPORTS "GAS PAINS" DECREASING. PT UP TO CHAIR FOR MEALS. ALARM USED FOR SAFETY. PT HAS BEEN CO-OP AND "CAREFUL" HE SAYS. NO C/O. DENIED FURTHER NEEDS. CALL LT IN REACH.
--- NOTE | 2021-04-19 03:56 | NUR ---
SHIFT SUMMARY ADMITTED FOR UTI/SEPSIS. DNR CODE. PLAN IS FOR PLACEMENT. HE IS AUTISTIC, HE IS COOPERATIVE WITH CARE. DAVILA IS IN PLACE AND DRAINING. APS IS ASSISTING WITH THIS CASE. HE IS A STANDBY ASSIST - BSC. TODAY THE PLAN IS FOR A FULL BODY BONE SCAN, A SUSPICIOUS LESION WAS FOUND ON HIS RT. ILIAC BONE AND HIS PSA WAS ELEVATED. HE IS ON RA.
[2021-04-19 05:32] LABS: BASOPHILS ABSOLUTE AUTO 0.05 K/mm3 (0.00-0.23); BASOPHILS PERCENT AUTO 1 % (0-2); EOSINOPHILS ABSOLUTE AUTO 0.04 K/mm3 (0.00-0.68); EOSINOPHILS PERCENT AUTO 1 % (0-6); Hematocrit 31.9 % (37.0-53.0); Hemoglobin 10.4 g/dL (13.5-17.5); IMMATURE GRAN ABSOLUTE AUTO 0.03 K/mm3 (0.00-0.10); IMMATURE GRAN PERCENT AUTO 1 % (0-1); LYMPHOCYTES ABSOLUTE AUTO 0.58 K/mm3 (0.84-5.20); LYMPHOCYTES PERCENT AUTO 9 % (21-46); MONOCYTES ABSOLUTE AUTO 0.74 K/mm3 (0.16-1.47); MONOCYTES PERCENT AUTO 11 % (4-13); Mean Corpuscular HGB 31.3 pg (26.0-34.0); Mean Corpuscular HGB Conc 32.6 g/dL (31.5-36.5); Mean Corpuscular Volume 96 fL (80-100); Mean Platelet Volume 9.6 fL (9.1-12.4); NEUTROPHILS ABSOLUTE AUTO 5.16 K/mm3 (1.96-9.15); NEUTROPHILS PERCENT AUTO 78 % (41-73); Platelet Count 332 K/mm3 (150-400); RDW Coefficient Variation 13.5 % (11.7-14.2); RDW Standard Deviation 47.8 fL (35.1-46.3); Red Blood Cell Count 3.32 M/mm3 (4.30-5.90)
[2021-04-19 06:39] LABS: Magnesium, Blood 2.2 mg/dL (1.6-2.4)
[2021-04-19 06:40] LABS: Alanine Aminotransfer (ALT/SGP 21 U/L (12-78); Albumin, Blood 2.7 g/dL (3.4-5.0); Albumin/Globulin Ratio 0.8 (0.8-1.8); Alk Phos 122 U/L (50-136); Anion Gap 5 mmol/L (6-16); Aspartate Aminotrans (AST/SGOT 18 U/L (12-37); Bilirubin, Total 0.4 mg/dL (0.1-1.0); Blood Urea Nitrogen 23 mg/dL (8-24); Bun/Creatinine Ratio 30.3 (12.0-20.0); CO2, Blood 31 mmol/L (21-32); Calcium, Blood 8.9 mg/dL (8.5-10.1); Chloride, Blood 101 mmol/L (98-108); Creatinine, Blood 0.76 mg/dL (0.60-1.20); Globulin, Blood 3.3 g/dL (2.2-4.0); Glomerular Filtration Rate >60 (60-); Glucose, Blood 98 mg/dL (70-99); Phosphorus, Blood 3.1 mg/dL (2.5-4.9); Potassium, Blood 4.6 mmol/L (3.5-5.5); Sodium, Blood 137 mmol/L (136-145)
--- NOTE | 2021-04-19 16:03 | NUR ---
SHIFT SUMMARY PT IS VERY PLEASANT AND CO-OP WITH CARE. UP TO CHAIR AT BS AND BACK TO BED INDEPENDENTLY. CHAIR AND BED ALARM ON FOR SAFETY. PT TO GO DOWN FOR BONE SCAN THIS AM. NEW IV PLACED FOR INJECTION AT 08:00. PT TOLERATED WELL. PT ALSO C/O PAIN TO L KNEE. INCREASED SWELLING NOTED SINCE YESTERDAY. DR HARRIS NOTIFIED THIS AM TO ASSESS PAIN AND SWELLING. NEW ORDERS PLACED. PT TAKEN DOWN FOR BONE SCAN AT 11:30 AND RETURNED FOR LUNCH. PT THEN TAKEN DOWN FOR XRAYS OF KNEES. POSSIBLE ASPIRATION OF L KNEE TOMORROW. PT MEDICATED WITH TYLENOL FOR PAIN AND ASPERCREME APPLIED WELL. PT EATING AND DRINKING BETTER EACH DAY. UP TO BTHRM FOR LRG BM THIS AFTERNOON. DENIES FURTHER NEEDS AT THIS TIME. CALL LT IN REACH.
--- NOTE | 2021-04-20 03:57 | NUR ---
SHIFT SUMMARY ADMITTED FOR UTI/SEPSIS. DNR CODE. CHRONIC DAVILA IN PLACE. BONE SCAN COMPLETED TODAY. RA. STANDBY - BSC. AUTISTIC, COOPERATIVE W/CARE. APS ASSISTING W/THIS CASE. PLAN IS FOR PLACEMENT. LOVENOX FOR DVT PREVENTION. WATCHING LEFT KNEE FOR SWELLING AND POSSIBLE PLAN OF TX.
[2021-04-20 05:32] LABS: BASOPHILS ABSOLUTE AUTO 0.04 K/mm3 (0.00-0.23); BASOPHILS PERCENT AUTO 1 % (0-2); EOSINOPHILS ABSOLUTE AUTO 0.02 K/mm3 (0.00-0.68); EOSINOPHILS PERCENT AUTO 0 % (0-6); Hematocrit 31.3 % (37.0-53.0); Hemoglobin 10.3 g/dL (13.5-17.5); IMMATURE GRAN ABSOLUTE AUTO 0.04 K/mm3 (0.00-0.10); IMMATURE GRAN PERCENT AUTO 1 % (0-1); LYMPHOCYTES ABSOLUTE AUTO 0.48 K/mm3 (0.84-5.20); LYMPHOCYTES PERCENT AUTO 7 % (21-46); MONOCYTES ABSOLUTE AUTO 0.78 K/mm3 (0.16-1.47); MONOCYTES PERCENT AUTO 12 % (4-13); Mean Corpuscular HGB 30.9 pg (26.0-34.0); Mean Corpuscular HGB Conc 32.9 g/dL (31.5-36.5); Mean Corpuscular Volume 94 fL (80-100); Mean Platelet Volume 9.4 fL (9.1-12.4); NEUTROPHILS ABSOLUTE AUTO 5.26 K/mm3 (1.96-9.15); NEUTROPHILS PERCENT AUTO 79 % (41-73); Platelet Count 326 K/mm3 (150-400); RDW Coefficient Variation 13.4 % (11.7-14.2); RDW Standard Deviation 46.2 fL (35.1-46.3); Red Blood Cell Count 3.33 M/mm3 (4.30-5.90); White Blood Cell Count 6.62 K/mm3 (4.00-11.30)
[2021-04-20 06:20] LABS: Anion Gap 4 mmol/L (6-16); Blood Urea Nitrogen 20 mg/dL (8-24); Bun/Creatinine Ratio 26.6 (12.0-20.0); CO2, Blood 32 mmol/L (21-32); Calcium, Blood 8.8 mg/dL (8.5-10.1); Chloride, Blood 99 mmol/L (98-108); Creatinine, Blood 0.75 mg/dL (0.60-1.20); Glomerular Filtration Rate >60 (60-); Glucose, Blood 103 mg/dL (70-99); Potassium, Blood 5.1 mmol/L (3.5-5.5); Sodium, Blood 135 mmol/L (136-145)
--- NOTE | 2021-04-20 08:45 | NUR ---
This morning I called [facility], [facility], [facility], [facility], [facility], [facility], [facility], [facility], [facility], and [facility] so far none of these have openings and have informed me that they are also receiving calls from [facility] inquiring about vacancies. I did talk to Laurie Simon who has a Class II Foster home that has one Medicaid opening for a male resident. She has my work cell number and states her daughter will be calling me back to arrange an assessment with Salas. I also talked to Ashley at [facility] (Level [facility])this morning who states they also have an opening for 1 male resident and accepts Medicaid. I plan to continue to call all the facilities on the [facility] list. I have also been working with Leydi (case job analysis manager at [facility]) to help assist in finding placement for Salas.
--- NOTE | 2021-04-20 09:06 | NUR ---
Possible opening at [facility] - requested a call back Sunday to arrange an assessment with Salas. Also possible opening at [facility] - left my name and number for their server systems administrator to call me.
[2021-04-20 12:19] LABS: Body Fluid Crystals NEG (NEGATIVE)
[2021-04-20 12:51] LABS: WBC Count, Synovial Fluid 97200 /mm3 (0-180)
[2021-04-20 12:52] LABS: RBC Count, Synovial Fluid 20000 /mm3 (0-0)
[2021-04-20 13:14] LABS: Lymphs, Synovial Fluid 2 % (0-15); Monocytes/Macrophages, Synovia 2 % (0-65); Neutrophils, Synovial Fluid 96 % (0-24)
[2021-04-20 13:15] LABS: Appearance, Synovial Fluid Cloudy (Clear)
[2021-04-20 13:16] LABS: Color, Synovial Fluid Dark Yellow (None-P Yel)
--- NOTE | 2021-04-20 19:24 | NUR ---
END OF SHIFT SUMMARY: PATIENT CONTINUES TO REPORT PAIN AND LIMITED ROM IN HIS LEFT KNEE. PATIENT TOLERATED ASPIRATION OF LEFT KNEE WELL, BUT REPORTS IT DID NOT CHANGE HOW IT FEELS. PATIENT UP WITH WALKER AND STAFF IN THE [place]. TOLERATES SHORT WALKS WELL. PATIENT REPORTS ABDOMINAL GAS THAT IS PARTIALLY ALLEVIATED WITH THE SCHEDULED SIMETHICONE. PATIENT REPORTS A MINIMAL APPETITE AT TIMES, BUT CONTINUES TO FINISH >50% OF HIS MEALS TO KEEP UP HIS STRENGTH.
--- NOTE | 2021-04-21 04:21 | NUR ---
SHIFT SUMMARY PT. AOX3 WITH CONFUSION AT TIMES BUT EASY TO REDIRECT. DNR. ADMITTED FOR SEPSIS. LEFT KNEE SWOLLEN AND PAIN 01/04, TREATED PER EMAR MEDICATIONS. DAVILA INTACT AND NO TELE. REG. DIET AND D/C PENDING PLACEMENT. DECREASED FLUID INTAKE THIS SHIFT. RESTED BETTER THIS SHIFT.
--- NOTE | 2021-04-21 16:36 | NUR ---
PT QUITE PLEASANT TODAY. 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 DOES C/O GAS PAIN, APPEARS FIXATED, STATES IF DRINKS MUCH WATER, MAKES WORSE. MED PER EMAR. LUNGS CLEAR, RESP EASY, UNLABORED. ON R.A. H/R REG, NO MURMER NOTED. NO TELE. BT X4 LAST BM YEST PER PT. VOIDS PER DAVILA, YELLOW FLUID DRAINING. BED IN LOW POSITION, CALL LITE IN REACH. BED ALARM ON FOR SAFETY
--- NOTE | 2021-04-22 03:53 | NUR ---
PATIENT IS PLEASANT AND COOPERATIVE. TIRED AND FALLING ASLEEP FROM THE START OF THE SHIFT AND HAS BEEN SLEEPING FOR THE MAJORITY OF THE NIGHT. STATED SOME PAIN TO HIS KNEES BUT DID NOT WANT TO USE THE ASPERCREME AND INSTEAD SAID HE WOULD "WORK OUT THE PAIN". VITALS STABLE. NO OTHER ACUTE CHANGES TO REPORT OF AT THIS TIME. CALL LIGHT WITHIN REACH.
[2021-04-22 05:31] LABS: BASOPHILS ABSOLUTE AUTO 0.06 K/mm3 (0.00-0.23); BASOPHILS PERCENT AUTO 1 % (0-2); EOSINOPHILS ABSOLUTE AUTO 0.06 K/mm3 (0.00-0.68); EOSINOPHILS PERCENT AUTO 1 % (0-6); Hematocrit 31.7 % (37.0-53.0); Hemoglobin 10.1 g/dL (13.5-17.5); IMMATURE GRAN ABSOLUTE AUTO 0.02 K/mm3 (0.00-0.10); IMMATURE GRAN PERCENT AUTO 0 % (0-1); LYMPHOCYTES ABSOLUTE AUTO 0.57 K/mm3 (0.84-5.20); LYMPHOCYTES PERCENT AUTO 10 % (21-46); MONOCYTES ABSOLUTE AUTO 0.62 K/mm3 (0.16-1.47); MONOCYTES PERCENT AUTO 11 % (4-13); Mean Corpuscular HGB 30.4 pg (26.0-34.0); Mean Corpuscular HGB Conc 31.9 g/dL (31.5-36.5); Mean Corpuscular Volume 96 fL (80-100); Mean Platelet Volume 9.9 fL (9.1-12.4); NEUTROPHILS ABSOLUTE AUTO 4.29 K/mm3 (1.96-9.15); NEUTROPHILS PERCENT AUTO 76 % (41-73); Platelet Count 327 K/mm3 (150-400); RDW Coefficient Variation 13.5 % (11.7-14.2); RDW Standard Deviation 47.5 fL (35.1-46.3); Red Blood Cell Count 3.32 M/mm3 (4.30-5.90); White Blood Cell Count 5.62 K/mm3 (4.00-11.30)
[2021-04-22 05:51] LABS: Anion Gap 7 mmol/L (6-16); Blood Urea Nitrogen 23 mg/dL (8-24); Bun/Creatinine Ratio 29.7 (12.0-20.0); CO2, Blood 27 mmol/L (21-32); Calcium, Blood 8.8 mg/dL (8.5-10.1); Chloride, Blood 105 mmol/L (98-108); Creatinine, Blood 0.77 mg/dL (0.60-1.20); Glomerular Filtration Rate >60 (60-); Glucose, Blood 109 mg/dL (70-99); Potassium, Blood 4.5 mmol/L (3.5-5.5); Sodium, Blood 139 mmol/L (136-145)
--- NOTE | 2021-04-22 10:00 | NUR ---
PT PLEASANT COOP A/O X3 , AUTISTIC. PT PRESENTS MALNOURISHED. IS STATES PAIN SOME BETTER TODAY. H/R REG, NO MURMER NOTED. NO TELE. LUNGS CLEAR, RESP EASY, UNLABORED. ON R.A. SITTING IN CHAIR. BT X4 LAST BM YEST PER PT. VOIDS DAVILA CATH. DRAINING YELLOW FLUID. BED IN LOW POSITION, CALL LITE IN REACH. BED ALARM ON FOR SAFETY
--- NOTE | 2021-04-22 18:27 | NUR ---
PT DOING PRETTY WELL TODAY. STATES PAIN DOWN SOME WITH MEDS. DID NOT ASK FOR PAIN MED TODAY. DR BOOTHE IN TO SEE TODAY. DID ASK TO STOP THE ENSURES. NOT USING AND HAS ABOUT 10 IN ROOM NOW. NO NEW CONCERNS NOTED. BED IN LOW POSITION, ALL LITE IN REACH, BED ALARM ON FOR SAFETY
--- NOTE | 2021-04-23 06:17 | NUR ---
SHIFT SUMMARY PATIENT ALERT AND ORIENTED. HAD NO COMPLAINTS OF PAIN OR SHORTNESS OF BREATH. NO ACUTE ISSUES NOTED OVERNIGHT. BED IN LOWEST POSITION WITH WHEELS LOCKED AND ALARM ON. CALL LIGHT WITHIN REACH. REPORT GIVEN TO ONCOMING RN.
--- NOTE | 2021-04-23 10:00 | NUR ---
PT PLEASANT COOP A/O TALKATIVE. DENIES PAIN AT THIS TIME. HR REG, NO MURMER NOTED. NO TELE. LUNGS CLEAR, RESP EASY,UNLABORED. ON R/A. BT X4 ACTIVE. STATES LAST BM 3-4 DAYS. MIRALAX AND SENEKOT GIVEN. ADVISED TO INCREASE H2O INTAKE. VOIDS PER BATHROOM. SBA BED IN LOW POSITION, CALL LITE IN REACH, CALLS APPROP
--- NOTE | 2021-04-23 19:09 | NUR ---
PT PLEASANT TODAY. FIXATED ON BEING CONSTIPATED, HAD 2 MED B/M TODAY ALSO GOT EXTRA DOSE SENAKOT. GLYCERINE SUPP. SOME RESULTS. NO OTHER CONCERNS NOTED. WALKED TO BATHROOM FOR NEEDS TODAY WITH FWW. CLEANS SELF ADEQUATELY. RETUNRED TO BED. SBA. ENCOURAGED INCREASED FLUID INTAKE. BED IN LOW POSITION, CALL LITE IN REACH, BDD ALARM ON FOR SAFETY
[2021-04-24 05:02] LABS: BASOPHILS ABSOLUTE AUTO 0.06 K/mm3 (0.00-0.23); BASOPHILS PERCENT AUTO 1 % (0-2); EOSINOPHILS ABSOLUTE AUTO 0.12 K/mm3 (0.00-0.68); EOSINOPHILS PERCENT AUTO 3 % (0-6); Hemoglobin 9.6 g/dL (13.5-17.5); IMMATURE GRAN ABSOLUTE AUTO 0.01 K/mm3 (0.00-0.10); IMMATURE GRAN PERCENT AUTO 0 % (0-1); LYMPHOCYTES ABSOLUTE AUTO 0.55 K/mm3 (0.84-5.20); LYMPHOCYTES PERCENT AUTO 13 % (21-46); MONOCYTES ABSOLUTE AUTO 0.38 K/mm3 (0.16-1.47); MONOCYTES PERCENT AUTO 9 % (4-13); Mean Corpuscular HGB 30.2 pg (26.0-34.0); Mean Corpuscular Volume 94 fL (80-100); Mean Platelet Volume 9.5 fL (9.1-12.4); NEUTROPHILS ABSOLUTE AUTO 3.08 K/mm3 (1.96-9.15); NEUTROPHILS PERCENT AUTO 73 % (41-73); Platelet Count 354 K/mm3 (150-400); RDW Coefficient Variation 13.4 % (11.7-14.2); RDW Standard Deviation 46.7 fL (35.1-46.3); Red Blood Cell Count 3.18 M/mm3 (4.30-5.90)
[2021-04-24 05:25] LABS: Alanine Aminotransfer (ALT/SGP 37 U/L (12-78); Albumin, Blood 2.3 g/dL (3.4-5.0); Albumin/Globulin Ratio 0.6 (0.8-1.8); Alk Phos 132 U/L (50-136); Anion Gap 5 mmol/L (6-16); Aspartate Aminotrans (AST/SGOT 28 U/L (12-37); Bilirubin, Total 0.4 mg/dL (0.1-1.0); Blood Urea Nitrogen 34 mg/dL (8-24); Bun/Creatinine Ratio 44.3 (12.0-20.0); CO2, Blood 30 mmol/L (21-32); Calcium, Blood 8.6 mg/dL (8.5-10.1); Chloride, Blood 104 mmol/L (98-108); Creatinine, Blood 0.77 mg/dL (0.60-1.20); Globulin, Blood 3.6 g/dL (2.2-4.0); Glomerular Filtration Rate >60 (60-); Glucose, Blood 97 mg/dL (70-99); Magnesium, Blood 2.3 mg/dL (1.6-2.4); Phosphorus, Blood 3.4 mg/dL (2.5-4.9); Potassium, Blood 4.5 mmol/L (3.5-5.5); Sodium, Blood 139 mmol/L (136-145); Total Protein, Blood 5.9 g/dL (6.4-8.2)
--- NOTE | 2021-04-24 06:00 | NUR ---
SHIFT SUMMARY PATIENT ALERT AND ORIENTED. HAD NO COMPLAINTS OF PAIN OR SHORTNESS OF BREATH. HAD NO ACUTE ISSUES NOTED OVERNIGHT. CALL LIGHT WITHIN REACH. REPORT GIVEN TO ONCOMING RN.
--- NOTE | 2021-04-24 18:38 | NUR ---
Alert and oriented x3 , able to make needs known. Denies any pain. C/O constipation ,senna 2 tabs was given ,patient had large BM. Vital signs are stable. One person assist with ADLS. ALarm on. Continue to monitor.
--- NOTE | 2021-04-25 06:19 | NUR ---
SHIFT SUMMARY PATIENT ALERT AND ORIENTED. HAD NO COMPLAINTS OF PAIN OR SHORTNESS OF BREATH. NO ACUTE ISSUES NOTED OVERNIGHT. CALL LIGHT WITHIN REACH. REPORT GIVEN TO ONCOMING RN.
--- NOTE | 2021-04-25 10:59 | NUR ---
I called and spoke with Charisse at [facility] who stated they had a Medicaid opening - faxed over packet - will call later to request an update on possible placement.
--- NOTE | 2021-04-25 12:49 | NUR ---
Dee Dee Keith, Laurie Simon' daughter called regarding possible placement in their Adult Foster Home. Faxed a packet to her and she will be doing an assessment tomorrow with Salas. I plan to attend that as well. I also called and spoke with Leydi Hughes, who plans to speak with his nurse today regarding his level of care to complete her assessment to determine what level of care he needs and what level of pay his Medicaid will provide for long-term care.
--- NOTE | 2021-04-25 19:10 | NUR ---
Alert and oriented x3, able to verbalize needs . Denies any pain . Continue on simethicone , it was effective. Vital signs are stable. No acute event occur during shift. Call light within reach and chair alarm on. Continue to monitor.
--- NOTE | 2021-04-26 06:14 | NUR ---
PAEDODONTIST SUMMARY ADMITTED FOR SEPSIS/UTI (RESOLVED). PT IS A DNR. AWAITING PLACEMENT AT THIS TIME. MEDICATED FOR GAS PAINS. PT IS PLEASANT AND COOPERATIVE. ALERT AND ORIENTED. NO OTHER CONCERNS THIS SHIFT.
--- NOTE | 2021-04-26 19:12 | NUR ---
Alert and orineted , anxious and restless at times. Continue on simethicone for gas pain , it was effective. No acute event occurs during shift. Bilateral lower extremities edema noted , 1 + . Chair alarm on. Continue to monitor.
--- NOTE | 2021-04-27 16:25 | NUR ---
I spoke with Dee Dee this morning from the Adult Foster [facility] that was going to do an assessment on Salas for possible placement. She states she does not think he would be a good fit and declined placement.I called and left a message for Ashley at [facility] to ask about placement. I called [facility] again - they stated no openings. I called Charisse at [facility], she stated her nurse is still looking over the patient's information and requested I call back tomorrow. I called [facility] and they may have an opening mid april - stated Charisse would give me a call if they had an opening. I called [facility] and was told they have possible openings, was given a contact name (Rafaela) and number - lmom to call me back.
--- NOTE | 2021-04-27 19:07 | NUR ---
Alert and oriented x3 , able to make needs known. Denies any headache , SOB , dizziness and chest pain. Continue on simethicone for gas pain , it was effective. maya cath is in place and draiing clear yellow urine.Bed and chair alarm on , continue to monitor.
--- NOTE | 2021-04-28 04:54 | NUR ---
SHIFT SUMMARY PATIENT HAD NO ACUTE CHANGES OBSERVED. OOB X TWO AND REDIRECTS BACK INTO BED. AXO X3 AND ONE ASSIST TO BSC. DAVILA PATENT AND DRAINING TO GRAVITY. DENIES PAIN, SOB, AND N/V. ON ROOM AIR. CALL LIGHT IN REACH. BED IN LOWEST POSITION. WILL CONTINUE TO MONITOR UNTIL DAY SHIFT NURSE ASSUMES CARE.
--- NOTE | 2021-04-28 11:33 | NUR ---
I received a call back from Rafaela at [facility] admissions. She said she is going to reach out to the Admin at [facility] ( Amelie Singh) and their nurse to ask for one of them to do an intake eval on [place] this afternoon sometime, ETA unknown. I emailed Amelie a patient packet to assess as well.
--- NOTE | 2021-04-28 18:12 | NUR ---
Alert and oriented x3 , able to make needs known. c/o constipation , senna 2 tabs was given , no BM yet . Vital signs are stable. Walked on hallway. Liriano in place, draining clear yellow urine. One person assist with ADLs. Chair alarm on . Continue to monitor.
--- NOTE | 2021-04-29 05:51 | NUR ---
PT REMAINS ANXIOUS AND RESTLESS. C/O CONSTIPATION AND ABDOMINAL PAIN FROM "GAS." PT HAD LARGE BOWEL MOVEMENT THIS MORNING. ALSO RECEIVED PRN TYLENOL AND ROUTINE SIMETHICONE. LAST NIGHT PT RECEIVED ROUTINE EVENIMG MEDICATION (BOWEL CARE). CHRONIC DAVILA CATHETER REMAINS IN PLACE, PATENT, DRAINING URINE VIA GRAVITY. PT CONTINUOUSLY JUMPING OUT OF BED WITHOUT ASSISTANCE OR USING CALL LIGHT DESPITE REPEATED RE-EDUCATION AND RE-DIRECTION. BED ALARM ACTIVATED, PT IS MONITORED FREQUENTLY AND BED ALARM IS RESPONDED TO PROMPTLY. BED IS IN LOW POSITION WITH CALL LIGHT WITHIN EASY REACH. WILL CONTINUE TO MONITOR.
--- NOTE | 2021-04-29 17:06 | NUR ---
SHIFT SUMMARY PATIENT IS ALERT AND ORIENTED X3-X4. THE PATIENT IS PLEASANT AND COOPERATIVE WITH CARE. PATIENT COMPLAINED OF BURNING IN THEIR BLADDER. THE PATIENT'S DAVILA WAS FLUSHED. THE BURNING SUBSIDED. THE PATIENT RECEIVED A NEW DAVILA THIS SHIFT. IT IS PATENT AND DRAINING HEMATURIA TO GRAVITY. DOCTOR IS AWARE. THE PATIENT IS FIXATED ON THEIR BOWEL CARE MEDS THIS SHIFT. THE PATIENT IS UP IN THEIR CHAIR WAITING FOR DINNER. THIS NURSE WILL CONTINUE TO CARE FOR THE PATIENT UNTIL SHIFT REPORT IS GIVEN TO ONCOMING NURSE.
--- NOTE | 2021-04-30 17:01 | NUR ---
SHIFT SUMMARY PATIENT IS ALERT AND ORIENTED X3 PLEASANT AND COOPERATIVE WITH CARE. PATIENT HAS HAD NO ACUTE CHANGES THIS SHIFT. PATIENT IS SITTING UP IN THEIR CHAIR. CHAIR ALARM SET. CALL LIGHT WITHIN REACH. THIS NURSE WILL CONTINUE TO CARE FOR THE PATIENT UNTIL SHIFT REPORT IS GIVEN TO THE ONCOMING NURSE.
--- NOTE | 2021-05-01 05:51 | NUR ---
PT RESTED WELL FOR MOST OF THE NIGHT. NO DISTRESS NOTED. HAS PERIODS OF RESTLESSNESS WHILE AWAKE. CHRONIC DAVILA CATHETER REMAINS IN PLACE, PATENT, DRAINING URINE TO COLLECTION BAG VIA GRAVITY; HOWEVER, IN THE BEGINNING OF THE SHIFT, PT WAS TAKING DAVILA URINE COLLECTION BAG AND PLACING IT ON THE BED OR ON THE FOOT BOARD OF THE BED INSTEAD OF ALLOWING IT TO REMAIN HANGING IN THE SIDE BED FRAME AT A LOWER HEIGHT. PT WAS EDUCATED REGARDING THE RATIONALE AND IMPORTANCE OF MAINTAINING THE POSITION IF THE URINE COLLECTION BAG LOWER SO THAT GRAVITY CAN ASSIST IN DRAINING. HE VERBALIZED HIS UNDERSTANDING AND HAS NOT MOVED THE BAG SINCE. BED IS IN LOW POSTION WITH BED ALARM ACTIVATED AND CALL LIGHT WITHIN EASY REACH. WILL CONTINUE TO MONITOR.
--- NOTE | 2021-05-01 16:49 | NUR ---
SHIFT SUMMARY PATIENT IS ALERT AND ORIENTED X3, PLEASANT AND COOPERATIVE WITH CARE. NO ACUTE CHANGES THIS SHIFT. THE PATIENT WENT ON TWO WALKS TODAY. THE PATIENT IS SITTING UP IN THEIR CHAIR WITH ALARM APPLIED. CALL LIGHT WITHIN REACH.NO DISCOMFORT NOTED. THIS NURSE WILL CARE FOR THE PATIENT UNTIL SHIFT REPORT IS GIVEN TO ONCOMING NURSE.
--- NOTE | 2021-05-02 06:56 | NUR ---
PT WAS A/O X3 , STABLE VITAL SIGNS, NO ACUTE CHANGES. PT REFUSED MIRALAX BECAUSE HE SAID IT BOTHERS HIS STOMACH.PT WAS COOPERATIVE AND PLEASANT
--- NOTE | 2021-05-02 08:00 | NUR ---
pt sitting up in a chair, he is a/ox3, pleasant and cooperative with care, follows commands well, denies pain, took po meds without diff, lungs are clear on r/a, resp even and unlabored, no cough noted, hrr, no edema noted, ppp+2, cap refill <3sec, vs stable, afebrile, iv site to lfa is patent, btx4, abd flat soft nontender, voids without diff, skin c/w/d, except for some brusings to abd from shots, maew, enrrique, call light in reach.
--- NOTE | 2021-05-02 18:01 | NUR ---
pt sat in the chair all day, no needs, ambulated in pineda with instructor kindergarten students, no complaints or needs. call light in reach.
--- NOTE | 2021-05-03 05:15 | NUR ---
PT WAS A/O X3, STABLE VITALS, NO ACUTE CHANGES.PT WAS PLEASANT AND COOPERATIVE BUT REFUSED EVENING MIRALAX BECAUSE HE BELIEVES WITH INCREASE GAS IN HIS STOMACH
--- NOTE | 2021-05-03 19:02 | NUR ---
PT A/O X3. VITALS STABLE PT AMBULATES WELL TO HALLWAY MULTIPLE TIMES. ALL MEDS GIVEN PER MAR. PT DENIES PAIN/DISCOMFORT. NO SIGNS OF ACUTE DISTRESS. DAVILA CARE PROVIDED. REPORT GIVEN TO SILVER HOLLOWARE ASSEMBLER NURSE
--- NOTE | 2021-05-04 04:39 | NUR ---
PT co severe bladder spasms writhing on bed. Unable to flush maya. dc previous maya just placed 04/29/21 & bladder scanned for greater than 375. UA with C & S if indicated ordered & sent per protocol.
[2021-05-04 04:41] LABS: Source, Urine Catheter
[2021-05-04 04:44] LABS: Bilirubin, Urine Neg (Neg); Blood, Urine 5+ (Neg); Glucose Qualitative, Urine Neg (Neg); Ketones, Urine Neg (Neg); Leukocyte Esterase, Urine 3+ (Neg); Nitrite, Urine Pos (Neg); Protein, Urine 3+ (Neg); Urobilinogen, Urine NORM (Normal)
--- NOTE | 2021-05-04 05:03 | NUR ---
PT WAS ALERT AND ORIENTED X3, STABLE VITAL SIGNS. PT CPMPLAINED OF PRESSURE IN A BLADDER, BLADDER SCAN SHOWED 300ML. OLD DAVILA WAS BLOCKED SO IT WAS DISCONTINUED AND A NEW DAVILA WAS PLACED AND A UA SPECIMEN WAS SENT TO THE LAB
[2021-05-04 06:11] LABS: Appearance, Urine Hazy (Clear); Color, Urine Yellow (P-Yellow)
[2021-05-04 06:17] LABS: Mucus Heavy (0-Heavy); Triple Phosphate Crystals Mod /hpf
[2021-05-04 06:19] LABS: Bacteria Many /hpf; Squamous Epithelial Cells Rare /hpf (Few)
--- NOTE | 2021-05-04 18:47 | NUR ---
PT A/O X 2-3. NO ACUTE CHANGES NOTED. PT DENIES PAIN FOR SHIFT. ALL MEDS GIVEN PER JUL. DAVILA CARE PROVIDED. PT AMBULATES WELL IN ROOM
--- NOTE | 2021-05-05 04:34 | NUR ---
PT WAS A/O X3, STABLE VITAL SIGNS, PT DENIES PAIN. PT REMOVED IV ACCESS BY ACCIDENT BUT NEW IV ACCESS WAS PLACED ON LEFT FOREARM.PT SLEPT THROUGH THE NIGHT
--- NOTE | 2021-05-05 10:13 | NUR ---
Ambika been corresponding with Rafaela (Admissions) and Valeria Albright (RN for [facility]) this week and they both stated that the patient most likely has placement with [facility] in [place], but will need to be discharged with Home Health. I have not received a call back yesterday or this morning after being told they would be able to accept him today. Will wait for a call back but, I also called Jolanta Bales this morning.
--- NOTE | 2021-05-05 11:19 | NUR ---
Kristen from [employer] [facility] just returned my call and stated that they do not currently have any Medicaid openings.
--- NOTE | 2021-05-05 17:39 | NUR ---
PATIENT A/O X3. NO ACUTE CHANGES PER SHIFT.PT DENIES PAIN FOR SHIFT.PT AMBULATES WELL IN ROOM WITH ASSISTANCE. [facility]
--- NOTE | 2021-05-06 04:37 | NUR ---
PT A/O X3, STABLE VITAL SIGNS, NO ACUTE CHANGES. PT DENIES PAIN. PT WOKE A COUPLE OF TIMES DURING THE SHIFT AND SAT UP FOR A WHILE BUT WENT BACK TO SLEEP
--- NOTE | 2021-05-06 11:17 | NUR ---
Per Amelie (Admin at [facility]) patient has been accepted at [facility] and they will complete the necesary paperwork needed for placement today - the plan is to discharge him Sunday and transfer him to [facility].
--- NOTE | 2021-05-07 03:27 | NUR ---
CLIP RIVETER SUMMARY PATIENT HAD A FAIR SHIFT. HE LODGED NIL FRESH COMPLAINT. HE SLEPT MOST OF THE NIGHT. WILL CONTINUE TO MONITOR HIM.
[2021-05-07 06:38] LABS: Anion Gap 5 mmol/L (6-16); Blood Urea Nitrogen 24 mg/dL (8-24); Bun/Creatinine Ratio 32.4 (12.0-20.0); CO2, Blood 30 mmol/L (21-32); Calcium, Blood 8.5 mg/dL (8.5-10.1); Chloride, Blood 104 mmol/L (98-108); Creatinine, Blood 0.74 mg/dL (0.60-1.20); Glomerular Filtration Rate >60 (60-); Glucose, Blood 85 mg/dL (70-99); Potassium, Blood 4.5 mmol/L (3.5-5.5); Sodium, Blood 139 mmol/L (136-145)
--- NOTE | 2021-05-07 18:39 | NUR ---
NO ACUTE CHANGES NOTED DURING SHIFT. PT AMBULATES WELL IN HALLWAY AND IN ROOM. PT DENIES PAIN/DISCOMFORT. VITALS STABLE. DAVILA CARE PROVIDED. CALL LIGHT WITHIN REACH,SAFETY ROUNDING, ROOM FREE OF CLUTTER, BED ALARM ON
--- NOTE | 2021-05-08 05:07 | NUR ---
TICK ERADICATOR SUMMARY PATIENT HAD A FAIR SHIFT. STILL HAS ABDOMINAL PAIN, HE GOT HIS PAIN MEDICATION, HIS V/S WERE CHECKED AND DOCUMENTED, AND ARE STABLE. WILL CONTINUE TO MONITOR HER.
--- NOTE | 2021-05-08 16:16 | NUR ---
SHIFT SUMMARY PATIENT IS ALERT AND ORIENTED 2-3. PATIENT HAD NO ACUTE ISSUES THIS SHIFT. PATIENT HAS NOT COMPLAINED OF AND PAIN, NAUSEA, SOB, OR VOMITTING THIS SHIFT. PATIENT HAS AMBULATED ONCE IN HALLWAYS DURING SHIFT WITH [facility]. VITAL SIGNS REVIEWED. CALL LIGHT WITHIN REACH AND WILL MONITOR UNTIL SHIFT CHANGE.
--- NOTE | 2021-05-09 03:48 | NUR ---
COMMUNICATIONS EQUIPMENT SUPERVISOR SUMMARY PATIENT HAD A FAIR SHIFT. CHRONIC ABD PAIN WAS GIVEN HIS MEDS NEEDED AND SCHEDULED MEDS. HIS VITALS WERE STABLE. WILL CONTINUE TO MONITOR HIM.
--- NOTE | 2021-05-09 09:02 | NUR ---
I called Amelie with [facility] to confirm transfer to [facility] today. She states she has still not heard from patient's neice Janie and needs some paperwork filled out. I have called Janie Sunday and this morning leaving voicemails for her to return my call regarding this. Amelie confirmed if Janie is able to come into [facility] to complete this paperwork that Salas will be able to move in today.
--- NOTE | 2021-05-09 16:08 | NUR ---
SHIFT SUMMARY PATIENT IS ALERT AND ORIENTED X3, PLEASANT AND COOPERATIVE WITH CARE. THE PATIENT WENT FOR A WALK THIS SHIFT. THE PATIENT IS A BIT ANXIOUS THIS SHIFT. THE PATIENT IS PENDING PLACEMENT AT [facility]. NIECE HAS BEEN UNABLE TO REACH THIS SHIFT. VITAL SIGNS STABLE. NO ACUTE CHANGES THIS SHIFT. WILL CONTINUE TO CARE FOR UNTIL SHIFT REPORT IS MADE TO ONCOMING NURSE.
--- NOTE | 2021-05-10 04:47 | NUR ---
SUMMARY: A/OX4, INDEPENDENT IN ROOM AND CALLS APPROPRIATELY TO SPECIFY NEEDS. PT DENIED COMPLAINTS OTHER THAN PERSISTANT GAS, SIMETHICONE LIQUID RECIEVED PER EMAR. CHRONIC DAVILA PATENT AND DRAINING TO GRAVITY. PLACEMENT AT [facility] PENDING D/T STAFF UNABLE TO REACH PT'S NIECE PER RN SHIFT REPORT. VSS/AFEBRILE, NO ACUTE CHANGES. WCTM AND REPORT TO DAY RN.
--- NOTE | 2021-05-10 07:58 | NUR ---
I spoke with Amelie multiple times yesterday regarding Salas transferring to [facility]. She said it is pending due to the neice needing to complete some paperwork. Both Amelie and I have made multiple attempts last week and yesterday to reach Janie German via her cell phone with no success.
--- NOTE | 2021-05-10 08:08 | NUR ---
I called and left a message for Leydi LORD [place] regarding not being able to get Pollo' neice to complete this paperwork that [facility] is requiring before transfer. I'd like to find a way to bypass having to rely on the patient's neice.
--- NOTE | 2021-05-10 18:30 | NUR ---
SHIFT SUMMARY: PT A/O X 2 IND IN ROOM AT THIS TIME, PLEASANT AND COOPERATIVE. PT HAD XX LARGE BM THIS AM AFTER MIRALAX AND PRUNE JUICE GIVEN. PT REPORTED FEELING MUCH BETTER. PT AMBULATED ALL THE HALLS OF THE 3RD FLOOR AND DID WELL WITH NO S/S OF SOB OR FATIGUE. GAIT STEADY WITH WALKER, FOLLED COMMANDS WELL. NO ACUTE CHANGES AT THIS TIME.
--- NOTE | 2021-05-11 04:11 | NUR ---
FRANCHESKA REMAINED STABLE DURING THE OPERATIONS RESEARCH ENGINEER, DID NOT COMPLAIN OF ANY PAIN, HE WAS ADMINISTERED HIS MEDICATIONS AND HAD A RESTFUL NIGHT
--- NOTE | 2021-05-11 10:16 | NUR ---
Leydi Hughes - [employer] Volcanologist called me this morning to let me know that she spoke with Amelie - Admin with [facility] - and that they are willing to accept him with his signatures due to being unable to contact his neice or nephew. I again, tried calling Janie Porter this morning and left another voicemail. Her cell phone still goes straight to voicemail.
--- NOTE | 2021-05-11 18:11 | NUR ---
SHIFT SUMMARY: PT A/O IND IN ROOM. PLEASANT AND COOPERATIVE WITH CARES. PT AMBULATED TWICE AROUND MEDICAL FLOOR TODAY AND WAS STEADY ON FEET WITH WALKER. PT DID REFUSE MIRALAX THIS EVENING HE WAS "WORRIED ABOUT HAVING LOOSE STOOLS." NO BM TODAY AT THIS TIME. GAVE HIM PRUNE JUICE AND EDUCATED ON BOWEL CARE NEEDS. PT VU. NO ACUTE CHANGES THIS SHIFT.
--- NOTE | 2021-05-12 04:32 | NUR ---
SHIFT SUMMARY PATIENT HAD NO ACUTE CHANGES. AXOX 3 WITH HX OF AUTISM. INDEPENDENT IN ROOM. DENIES PAIN, SOB, AND N/V. DAVILA PATENT AND DRAINING TO GRAVITY. SOMETHICONE LIQUID SCHEDULE PER EMAR GIVEN. VSS/AFEBRILE. CALL LIGHT IN REACH. BED IN LOWEST POSITION. WILL CONTINUE TO MONITOR UNTIL DAY SHIFT NURSE ASSUMES CARE.
[2021-05-12] MEDS ORDERED: FLUO10 PO (10:20)
--- NOTE | 2021-05-12 16:29 | NUR ---
SHIFT SUMMARY PATIENT IS ALERT AND ORIENTED X3 WITH A HISTORY OF AUTISM. PATIENT HAS HAD NO COMPLAINTS OF SOB, PAIN, NAUSEA, VOMITTING THIS SHIFT. NO ACUTE EVENTS THIS SHIFT. PATIENT IS IND IN ROOM. PATIENT HAS A DAVILA DRAINING TO GRAVITY FOR RETENTION. VITAL SIGNS REVIEWED. CALL LIGHT IN PLACE. WILL MONITOR UNTIL SHIFT CHANGE.
--- NOTE | 2021-05-12 17:32 | NUR ---
Per Amelie -Admin with [facility] - she stated she would be here at 1pm this afternoon to complete move-in paperwork with Salas and that she would accept his signatures on the paperwork due to his neice not being available. She also stated that he would be able to transfer to their facility today. I have tried to contact the netobin numerous times, the phone number [phone] goes straight to [facility]. Nor does she return my calls. I have also asked to be contacted if Salas receives any visitors, so I can inform them of the discharge plan and placement. I called Amelie shortly after 1pm, she stated she would be here at [facility] shortly to complete the paperwork. I requested she call me once at [facility] so I could meet with and talk to her in person in the patient's room. Shortly after 4pm I had yet to hear from her so I called her again - she did not answer my call. I called Rafaela - [facility] - and voiced my concerns and requested confirmation whether Salas actually has placement with [facility] or if I should be seeking other placement for him. She assured that he has been approved by their nurse to move into [facility] and that they will hold his room until he discharges to their facility. She states she also spoke with Amelie this morning and anticipated Salas transferring to their facility this afternoon. She was unaware why it did not happen and states she will be calling Amelie and will keep me in the loop. I have not heard back from either one today. I also informed Amelie that I have spoken to Lashell who would be willing to take guardianship of Salas in the near future, if need be. Per conversation with Jarett Smith and [facility], he feels a Payee for Salas would be more appropriate. I have informed Rafaela with [facility] of this conversation. I will also be relaying this to Leydi Hughes - APD polls or surveys interviewer - tomorrow.
--- NOTE | 2021-05-13 05:56 | NUR ---
PT HAS SLEPT FOR MOST OF THE NIGHT, HAS MADE NO COMPLAINTS AND NO ACUTE CHANGES NOTED. STAFF WILLL CONT TO MONITOR.
--- NOTE | 2021-05-13 16:25 | NUR ---
SHIFT SUMMARY PATIENT IS ALERT AND ORIENTED 2-3X. PATIENT IS PLEASENT AND COOPERATIVE WITH CARE. PATIENT IS SLOW TO RESPOND WITH A HX OF AUTISM. PATIENT IS A PLACEMENT ISSUE. VITAL SIGNS REVIEWED. NO ACUTE ISSUES THIS SHIFT. PATIENT HAS HAD NO COMPLAINTS OF NAUSEA, PAIN, SOB, OR VOMITTING THIS SHIFT. WILL MONITOR UNTIL SHIFT CHANGE.
--- NOTE | 2021-05-14 05:37 | NUR ---
SHIFT SUMMARY PT AOX3 WITH AUTISM AND CONCERNED ABOUT GAS PAINS AT THE START OF THIS SHIFT. THE PT WAS MEDICATED PER EMAR AND HAD A BM BUT STILL HAD DISCOMFORT IN THE STOMACH. THIS NURSE OFFERED WARM TEA AND SUGGESTED WALKING AROUND THE ROOM TO TRY TO GIVE SOME RELIEF. SUPERINTENDENT SEED MILL GAVE A ONE TIME DOSE OF GAS MEDICATION PLUS ALREADY ORDERED PAIN MEDS WHICH ALLOWED THE PT TO FINALLY REST THIS SHIFT. PT CURRENTLY RESTING WITH RISE AND FALL OF CHEST, WILL CONTINUE TO MONITOR UNTIL REPORT IS GIVEN.
--- NOTE | 2021-05-14 17:34 | NUR ---
SHIFT SUMMARY 80 YEAR AUTISTIC MALE ADMITTED FOR SEPSIS R/T UTI. PT HAS A CHRONIC DAVILA IN PLACE. PT APPEARS VERY FRAIL AND MALNURISHED. PT IS UP IND IN HIS ROOM AND SBA TO WALK HALLS FREQUENTLY. PT IS A&O, PLEASANT AND COOPERATIVE WITH CARE BUT ALSO FORGETTFULL AND IMPULSIVE, BED & CHAIR ALARM IN USE. PT WAS LIVING HOME WITH FAMILY AND IS CURRENTLY PENDING PLACEMENT FOR DISCHARGE TO [facility]. NO OTHER CHANGES THIS SHIFT.
[2021-05-15 06:37] LABS: Source, Urine Catheter
[2021-05-15 06:59] LABS: Bilirubin, Urine Neg (Neg); Blood, Urine 5+ (Neg); Glucose Qualitative, Urine Neg (Neg); Ketones, Urine Neg (Neg); Leukocyte Esterase, Urine 3+ (Neg); Nitrite, Urine Pos (Neg); Protein, Urine 3+ (Neg); Urobilinogen, Urine NORM (Normal)
[2021-05-15 07:22] LABS: Appearance, Urine Hazy (Clear); Color, Urine Yellow (P-Yellow)
[2021-05-15 07:23] LABS: Bacteria Mod /hpf; Red Blood Cells, Urine TNTC /hpf (0-2); Squamous Epithelial Cells Rare /hpf (Few); White Blood Cells, Urine TNTC /hpf (0-5)
--- NOTE | 2021-05-15 16:34 | NUR ---
VAISHALI PT WHO HAS BEEN HERE SINCE 03/27 FOR SEPSIS D/T UTI. WAITING PLACEMENT IN AN [facility]. REPORT THIS MORING FROM WHIZZER HAND NURSE THAT THE DAVILA HAD BEEN CHANGED AND URINE SENT TO LAB D/T C/O ABDOMINAL PAIN WITH DISTENDED ABDOMEN, RESULTING IN FINDING CALCIFICATION ON END OF DAVILA. DURING DAY SHIFT PT HAS C/O OF LOWER ABDOMINAL PAIN AND A SHARP PAIN IN THE PENIS. URINE EARLIER IN THE DAY WAS PINK/BROWN WITH SEDIMENT, ABDOMEN SLIGHTLY DISTENDED AND TIGHT. DR STOCK MADE AWARE AND VISITED WITH PT. DAVILA WAS FLUSHED WITH 20ML NS AND ADVANCED SLIGHTLY. AT TIME OF THIS NOTE URINE HAS LIGHTENED IN COLOR SLIGHTLY AND PT REPORTS THE PAIN IS STILL PRESENT BUT LESS THAN IT WAS. CALL LIGHT IN REACH. WILL CONTINUE TO WORK WITH PT TO RESOLVE PAIN. MEDICATING PER EMAR.
--- NOTE | 2021-05-16 05:01 | NUR ---
SHIFT SUMMARY NO ACUTE CHANGES TO REPORT THIS SHIFT, PT HAS RESTED MOST OF THE NIGHT. DAVILA PATENT AND DRAINING TO GRAVITY. PT STATES ABD PAIN MUCH IMPROVED, GAVE PAIN RATING 1 (0-10) SCALE. PT HAS SLEPT T/O SHIFT. A/OX4, MAKES NEEDS KNOWN. VITALS STABLE, BED IN LOWEST POSITION, CALL LIGHT WITHIN REACH.
--- NOTE | 2021-05-16 16:35 | NUR ---
DAY SHIFT SUMMARY PLEASANT PT, AUTISTIC, A/O X4, INDEPENDENT IN ROOM, STATES PAIN IS BETTER THAN YESTERDAY BUT STILL EXPERIENCING WHAT HE BELIEVES ARE GAS PAINS. URINE CULTURE RESULTS SHOW GRAM NEG RODS ISOLATED, IV ROCEPHEN ORDERED AND ADMINISTERED PER EMAR. CALL LIGHT WITHIN REACH OF PT. DAVILA IN PLACE, PATENT, DRAINING BY GRAVITY, COLOR IMPROVED - YELLOW. PT STATES HE HAS NOT HAD A SHOWER IN 20 DAYS, CHARTING SHOWS THE SAME. OFFERED SHOWERING TO PT BY RADIATOR CORE TESTER AND RN, PT REFUSED STATING HE WOULD PREFER TO SHOWER IN THE MORINING. PT STATES HE WILL TAKE HIS SHOWER TOMORROW MORNING. NO OTHER CHANGES WITH THIS PT THIS SHIFT.
--- NOTE | 2021-05-17 04:24 | NUR ---
SENIOR ARCHITECT SUMMARY PATIENT GA A FAIR SHIFT. WITH STABLE VITALS. NO COMLAINTS OVERNIGHT. WILL CONTINUE TO MONITOR HIM.
[2021-05-17 05:33] LABS: BASOPHILS ABSOLUTE AUTO 0.05 K/mm3 (0.00-0.23); BASOPHILS PERCENT AUTO 1 % (0-2); EOSINOPHILS ABSOLUTE AUTO 0.23 K/mm3 (0.00-0.68); EOSINOPHILS PERCENT AUTO 5 % (0-6); Hematocrit 32.6 % (37.0-53.0); Hemoglobin 10.5 g/dL (13.5-17.5); IMMATURE GRAN ABSOLUTE AUTO 0.02 K/mm3 (0.00-0.10); IMMATURE GRAN PERCENT AUTO 0 % (0-1); LYMPHOCYTES ABSOLUTE AUTO 0.56 K/mm3 (0.84-5.20); LYMPHOCYTES PERCENT AUTO 11 % (21-46); MONOCYTES ABSOLUTE AUTO 0.44 K/mm3 (0.16-1.47); MONOCYTES PERCENT AUTO 9 % (4-13); Mean Corpuscular HGB 30.5 pg (26.0-34.0); Mean Corpuscular HGB Conc 32.2 g/dL (31.5-36.5); Mean Corpuscular Volume 95 fL (80-100); Mean Platelet Volume 9.7 fL (9.1-12.4); NEUTROPHILS PERCENT AUTO 74 % (41-73); Platelet Count 231 K/mm3 (150-400); RDW Standard Deviation 48.8 fL (35.1-46.3); Red Blood Cell Count 3.44 M/mm3 (4.30-5.90)
[2021-05-17 06:30] LABS: Alanine Aminotransfer (ALT/SGP 23 U/L (12-78); Albumin, Blood 2.7 g/dL (3.4-5.0); Albumin/Globulin Ratio 0.8 (0.8-1.8); Alk Phos 141 U/L (50-136); Anion Gap 6 mmol/L (6-16); Aspartate Aminotrans (AST/SGOT 19 U/L (12-37); Bilirubin, Total 0.3 mg/dL (0.1-1.0); Blood Urea Nitrogen 33 mg/dL (8-24); CO2, Blood 28 mmol/L (21-32); Chloride, Blood 108 mmol/L (98-108); Creatinine, Blood 0.85 mg/dL (0.60-1.20); Globulin, Blood 3.5 g/dL (2.2-4.0); Glomerular Filtration Rate >60 (60-); Glucose, Blood 106 mg/dL (70-99); Potassium, Blood 4.6 mmol/L (3.5-5.5); Sodium, Blood 142 mmol/L (136-145); Total Protein, Blood 6.2 g/dL (6.4-8.2)
--- NOTE | 2021-05-17 15:38 | NUR ---
Amelie with [facility] called me yesterday morning to let me know she would be here at [facility] at 1030 AM with the paperwork for Salas to complete to move-in. I went up to his room at 10:45 and she was not there. I texted her to let her know I was there in his room. She said she was running late due to an issue in her facility. She told me she would be at [facility] around 1pm. I met with her in the case management office upstairs to discuss the paperwork needing to be completed. She also stated she spoke with Leydi Hughes [employer] adult protective caseworker and was told Salas needs to have a payee. Per Leydi with [employer], Salas stay with [facility] would be covered by his insurance. Amelie also started asking questions regarding Salas and his care that she says she has not been notified about. I reminded her that I faxed her a patient packet 2 weeks ago. Amelie with [facility] then stated that [facility] cannot accept him due to needing a payee to sign for him. I inquired why she told me last week that he would be able to move in with his signatures if he was now not able to. She states that is what her corporate office told her. I also referred to her roofing plant supervisor - Rafaela - who also told me she would be there at [facility] on Sunday to help complete the forms and meet [id number] to answer any questions. Amelie stated she was relaying the information Rafaela told her to. I no longer plan to pursue placement with [facility] or to further correspond with Amelie or Rafaela regarding this patient. I plan to pursue guardianship for Salas and to find placement elsewhere. I have faxed [facility] the Health Services Request form, I called today and they confirmed they received it. I informed them of his case and confirmed that this will be marked Urgent. Due to the holidays, I may not hear back until next week. Lashell Cruz is willing to be his guardian and is aware I have requested the funds to proceed from [facility].
--- NOTE | 2021-05-17 18:22 | NUR ---
SHIFT SUMMARY: NO ACUTE EVENTS. C/O ABD PAIN, GAS AND CRAMPING; SIMETHICONE GIVEN. ABD IS DISTENDED, HYPOACTIVE BS, LBM 12/18, DENIES NAUSEA. DAVILA DRAINING CLOUDY YELLOW URINE. AMBULATED COMPLETELY AROUND UNIT X 2, GAIT STEADY, USING FWW. AWAITING PLACEMENT IN [facility].
--- NOTE | 2021-05-18 05:45 | NUR ---
PATIENT WAS ALERT AND ORIENTED X3, STABLE VITAL SIGNS , NO ACUTE CHANGES, DAVILA IS PATENT. PATIENT DEINES ANY PAIN. PATIENT SLEPT FOR MOST OF THE SHIFT. CALL PLACED WITHIN IN REACH AND BED PUT TO THE LOWEST POSITION.
--- NOTE | 2021-05-18 12:46 | NUR ---
I just received a call from Janie Porter Veronica lopez from the original cell phone number she provided and that I have been calling the past two weeks. She stated that her cell phone has not been working but now it is working. She also gave me her landline that she states she thought she previously gave me [phone]. I informed her I have found placement at [facility]. I gave her Amelie - Admin at [facility]'s direct cell phone to contact her and proceed with completing the paperwork to be able to move him into [facility]. Veronica lopez then began to provide excuses as to why she did not want to sign the paperwork or be financially responsible for the patient, although she has been the one for quite some time to receive his only source of income and delegate it for rent and food. She states she was not aware that I was searching for placement for him and that he would just stay in the hospital until he got better. She also asked if he even wanted to leave the hospital. Her other concern was that if he moves to [facility] and doesn't like it, can he move elsewhere. I advised her that he has been ready to discharge from the hospital for quite some time, that when she helped me complete the OHP application to apply for long-term care when he was first admitted, that I informed her we were applying to be able to place him in a facility so he could receive adequate care. I also informed her that she can call Amelie and ask her questions about their facility but, they are willing to accept him and have placement for him now. If at any time in the future she feels he would be happier elsewhere, that it would be up to her to find a different facility, that the hospital is not an assisted living facility and it is not appropriate for Salas to remain here. She acknowledged understanding and stated she would call Amelie right away to complete the paperwork she needs to complete as his only family member.
--- NOTE | 2021-05-18 12:58 | NUR ---
Amelie with [facility] informed me that the neice did call her. Stated she is not the payee and refuses to sign as the payee. After consulting with another [facility] Supervisor Roving, [place], I plan to continue to move forward with seeking guardianship for Salas and will no longer involve the patient's family as they have not been cooperative.
--- NOTE | 2021-05-18 17:40 | NUR ---
SHIFT SUMMARY: NO ACUTE EVENTS. HAD LARGE BM THIS MORNING, SOME ABD DISCOMFORT RELIEVED. DAVILA DRAINING ADEQUATE URINE. DENIES PAIN. AMBULATED AROUND UNIT X 1 WITH FWW AND SBA, DOES IT ALL INDEPENDENTLY. AWAITING PLACEMENT IN [facility].
--- NOTE | 2021-05-19 04:29 | NUR ---
CAKE WRINGER SUMMARY PATIENT HAD A FAIR SHIFT. HIS V/S WERE CHECKED AND DOCUNENTED, AND WERE STABLE. HE LODGED NO COMPLAINT OVERNIGHT. WILL CONTINUE TO MONITOR HIM.
--- NOTE | 2021-05-19 07:17 | NUR ---
Bedside report received from noc RN. Pt appears to be sleeping comfortably, lying flat in bed, respirations even and unlabored.
--- NOTE | 2021-05-19 09:03 | NUR ---
Sitting up in chair, eating his breakfast. Repeatedly stating that he is having an uncomfortable feeling in his throat. Insists that it is a result of his position sleeping uncomfortably last night. He is eating, and I observe no coughing, no hesistation in eating yogurt, cream of wheat. He has eaten these and appears to be having no difficulty which I can see, but he states that it is uncomfortable. He states that he is afraid that there might be permanent damage from it.
--- NOTE | 2021-05-19 09:59 | NUR ---
Pt ate 100% of his breakfast while up in chair. Asking for additional yogurt and zucchini bread, which were provided for him.
--- NOTE | 2021-05-19 12:28 | NUR ---
Pt is sitting up in chair, as he has been all morning, except for a brief interlude to the bathroom where he had a BM. He is eating lunch.
--- NOTE | 2021-05-19 13:55 | NUR ---
Pt continues to peseverate on the subject of his throat discomfort and sudden swallowing discomfort which he says started this morning after his uncomfortable sleep last night.
--- NOTE | 2021-05-19 14:20 | NUR ---
Transfering independently from the chair back into bed.
--- NOTE | 2021-05-19 17:16 | NUR ---
Hussain has continued to mention his throat discomfort at meal times. He has eaten 100% of his meals while siting up in chair, and has also had some extra helpings and snacks in between. Urine output by maya catheter is clear yellow with some white sediment. Pt also had a soft, brown, very large BM in the bathroom today. He has been independently active for position changes, bathoom use, and walking short distances within the room.
--- NOTE | 2021-05-20 04:31 | NUR ---
CRUDE OIL DRIVER SUMMARY PATIENT HAD A FAIR SHIFT. V/S WERE STABLE. HE RESTED WELL OVER NIGHT. NO COMPLAINTS LODGED. WILL CONTINUE TO MONITOR.
--- NOTE | 2021-05-20 15:50 | NUR ---
SHIFT SUMMARY NO ACUTE CHANGES TO PRESENT THIS SHIFT. PT IS MORE INDEPENDENT FROM BED TO CHAIR AND BACK NOW. VERY PLEASANT AND CO-OP WITH CARE. REQUESTED "GAS MEDICATION" TWICE TODAY. NO C/O PAIN. REQUESTED MIRALAX THIS AM; LAST BM YESTERDAY. ABLE TO MAKE NEEDS KNOWN. CONTINUES TO WAIT PLACEMENT. DENIES FURTHER NEEDS AT THIS TIME.
--- NOTE | 2021-05-21 05:40 | NUR ---
SHIFT SUMMARY PT IS A 80 Y/O MALE, ADMITTED FOR SEPSIS. HE IS A&0 X 3, INDEPENDENT BETWEEN BED AND CHAIR. NO C/O ACUTE PAIN, NAUSEA OR SOB. VITAL SIGNS STABLE. CALL LIGHT IN REACH. NO ACUTE CHANGES IN PT CONDITION NOTED DURING THE NIGHT. WILL CONTINUE TO MONITOR AND TREAT PER EMAR UNTIL HAND OFF TO DAY SHIFT RN.
--- NOTE | 2021-05-21 16:57 | NUR ---
SHIFT SUMMARY PT ALERT AND ORIENTED. VS STABLE. PT DENIES ANY PAIN. PT ABLE TO AMBULATE THROUGH THE [facility] THIS SHIFT WITH 1 ASSIST GB AND WALKER. PT INDEPENDENT IN THE ROOM. DAVILA PATENT AND DRAINING. NO ACUTE CHANGES THIS SHIFT. WILL CONTINUE TO MONITOR AND REPORT TO ONCOMING RN. CALL LIGHT IN REACH. PT CALLS APPROPRIATELY.
--- NOTE | 2021-05-22 05:53 | NUR ---
PT SLEPT WELL THROUGH THE NIGHT, WAS EDUCATED ON FLUID INTAKE AND HYPOTENTION. PT CONSUMED 240ML OF JUICE BUT REFUSED WATER IT GIVES HIS GAS. GAS TREATED PER EMAR. NO ACUTE CHANGES. WILL CONT TO MONITOR.
--- NOTE | 2021-05-22 15:26 | NUR ---
SHIFT SUMMARY NO ACUTE CHANGES TO PRESENT THIS SHIFT. PT AWAKE AT START OF SHIFT, TALKING TO DR STREETER. PT IS VERY PLEASANT AND CO-OP. UP INDEPENDENTLY FROM BED TO CHAIR AND AROUND RM. PT ABLE TO AMBULATE TO BTHRM USING FWW INDEPENDENTLY OR SBA. REQUESTED BOTH AM DOSES OF MIRALAX TODAY; REPORTED THEM EFFECTIVE. REFUSED SHOWER TODAY. PT AGREEABLE TO HAVING CLOTHES CHANGED. REMAINS IN CHAIR AT BS ALL DAY. GOES TO BED ON HIS OWN IN THE EVENING. NO C/O. CALL LT IN REACH.
--- NOTE | 2021-05-23 05:07 | NUR ---
TREATING AND PUMPING SUPERVISOR SUMMARY PATIENT HAD A FAIR NO COMPLAINTS OVERNIGHT ABOUT PAIN. HIS V/S WERE STABLE. WILL CONTINUE TO MONITOR HIM.
--- NOTE | 2021-05-23 18:25 | NUR ---
SHIFT SUMMARY: PT A/O IND IN ROOM. PT C/O GAS PAIN TODAY, SIMETHICONE EFFECTIVE. PT REFUSING MIRALAX TODAY STATING HE HAD SOFT BM TODAY.
--- NOTE | 2021-05-24 03:58 | NUR ---
SHIFT SUMMARY NO ACUTE CHANGES. PT DID DECLINE TO TAKE HIS STOOL MEDICATIONS FOR THE EVENING. PT HAS BEEN SLEEPING MOST OF THE NIGHT. CALL LIGHT IS WITHIN REACH AND PT WILL CONTINUE TO BE MONITORED.
--- NOTE | 2021-05-24 17:48 | NUR ---
SUMMARY PT SITTING UP IN THE CHAIR AT THE BEDSIDE, PT HAS BEEN INDEPENDENT IN THE ROOM, PLEASANT AND COOPERATIVE WITH CARE, DR OLIVO HAS BEEN IN TO SEE THE PT TODAY, NO COMPLAINTS, VSS, WILL CONT TO MONITOR
--- NOTE | 2021-05-25 03:59 | NUR ---
SHIFT SUMMARY NO ACUTE CHANGES. PT WAITING FOR PLACEMENT. PT HAS INDWELLING DAVILA THAT IS PATENT AND DRAINING. IV IN L WRIST. NO TELE, ROOM AIR, INDEPENDENT IN ROOM. A&O X 3. PT HAS HX AUTISM. PT IS PLEASANT AND COOPERATIVE WITH HIS CARE. CALL LIGHT WITHIN REACH AND WILL CONTINUE TO MONITOR.
--- NOTE | 2021-05-25 14:23 | NUR ---
CARE MANAGEMENT REQUESTED THIS RN TO CALL AND SPEAK TO SYLWIA TO UPDATE HER ON PT CARE NEEDS FOR ADULT [facility]OSTER PLACEMENT. SPOKE WITH SYLWIA AND ANSWERED QUESTIONS, SHE HAD NO FURTHER QUESTIONS AT THE TIME OF THE PHONE CALL. PLAN IS FOR TO MEET WITH THE PT TOMORROW OVER VIDEO CONFERENCE WITH CARE MANAGEMENT.
--- NOTE | 2021-05-25 15:33 | NUR ---
Last week [facility] stated they were able to expedite the Flex Form Request and were able to write the $3,000 check for guardianship funds. Today Mary Jean emailed me saying that the patient is not supposed to be a [facility] patient until post hospital discharge so he does not qualify for [facility] services. [facility] has revoked the $3,000 check they were willing to write last week. This is due to the OHP application being completed while he is a hospital inpatient is what I have been told. This morning at 11am, Lashell Cruz, Jarett Smith and I held a phone conference regarding Salas Barr and his long-term stay here at the [facility]. Today is day 59. His neice and nephew have been distant and uncooperative for majority of his stay. Jarett Smith agreed to step in a work with Lashell Cruz and her tennis net maker to initiate the guardianship process - as this is what is needed to guarantee placement. Racquel with APS also called me this morning stating she has got ahold of the nephew and that he may be willing to complete the paperwork for [facility]. Racquel has also spoken with Amelie at [facility] and Amelie has stated to Racquel that there is still placement for Salas at [facility]. Joss Porter, the patient's nephew has been advised to go to [facility] after he gets off work today at 3pm to complete the paperwork, and the patient might be able to move ot [facility] tomorrow if this gets done. Meanwhile - I have reached out to Ashley Larry numerous times regarding this patient. I called last week and asked her to re-assess the patient packet I faxed over the beginning of the month. I have called her Sunday, yesterday and she returned my called today. She requested doctor and nurse notes updating his current status, she also requested that his nurse call her so she could evaluate the level of care he is needing. The nurse was on the phone with Ashley when I went up to the patient's room. He was sitting up, pleasant and alert. He is aware that I have been looking for a new room for him and that his stay here at the hospital is temporary. Ashley Larry has also requested a video call interview with Salas Bradfordrer tomorrow at 1:30Pm, which I will help facilitate.
--- NOTE | 2021-05-25 17:55 | NUR ---
SHIFT SUMMARY- PT A&O X 2-3, NO ACUTE CHANGE T/O THE DAY. UPDATE OF PT CARE NEEDS PROVIDED TO [facility], CARE MANAGEMENT HAS ARRANGED TO BE WITH THE PT TOMORROW FOR A MEETING VIA VIDEO CONFERENCE, NO C/O PAIN T/O THE SHIFT. PT SITTING UP IN THE CHAIR, CALL LIGHT IN REACH, INDEPENDENT IN THE ROOM. WILL CTM.
--- NOTE | 2021-05-26 04:25 | NUR ---
SHIFT SUMMARY A/O, ABLE TO MAKE NEEDS KNOWN. COOPERATIVE WITH CARE. ANSWERS QUESTIONS APPROPRIATELY. NO ACUTE CHANGES NOTED OVERNIGHT. DAVILA REMAINS SECURED, PATENT AND DRAINING TO GRAVITY. APPEARED TO REST WELL OVERNIGHT. AWAITING PLACEMENT AND GUARDIANSHIP. BED REMAINED IN LOWEST POSITION. CALL LIGHT AND BELONGINGS WITHIN REACH. REPORT TO ONCOMING RN.
--- NOTE | 2021-05-26 11:39 | NUR ---
I spoke with Amelie ([facility] Business Attorney) this morning who states that Salas' nephew did not present at [facility] yesterday to complete the move-in/payee paperwork. I also spoke with her in person here at the hospital this morning. She stated that she is going to call "[employer]" as a potential payee for Salas and "plans to move him into [facility] tomorrow". I have also called Racquel Jones - [employer]PS news agent to follow-up - I left a voicemail. I plan to proceed with the video conference with Ashley ([facility]) in hopes that he will be adequate for placement in their foster home.
--- NOTE | 2021-05-26 17:19 | NUR ---
Amelie with [facility] called me earlier this afternoon requesting I complete the client services request form with or for Salas. At 1:30PM this afternoon I helped Salas complete a video call conference with Ashley ([facility]) who called me after the video call and let me know that after discussing him with her staff, they feel his would be a good canidate for placement. Ashley states she called Margo Hughes to request what level of pay he will be with Medicaid and was told Margo is out for the rest of the week but, a fast food team member with that information may be able to call her back this afternoon. I have not heard back.
--- NOTE | 2021-05-27 04:40 | NUR ---
PT SLEPT FOR MOST OF THE NIGHT. ENCOURAGED PT TO INCREASE FLUID INTAKE. PT STATES HE GETS GAS IF HE DRINKS WATER AT NIGHT AND PREFERS TO CONSUME FLUIDS DURRING THE DAY. FC DRAINING CLEAR YELLOW URIN TO GRAVITY. NO CHANGES OVER NIGHT. WILL CONT TO MONITOR.
--- NOTE | 2021-05-27 18:22 | NUR ---
PT UP TO CHAIR MOST OF THE DAY, DECLINED TO AMBULATE IN THE [facility] TODAY. AWAITING PLACEMENT, VIDEO CONFERENCE CONDUCTED YESTERDAY. NO ACUTE CHANGES NOTED THIS SHIFT, WILL CONTINUE TO MONITOR AND REPORT TO ONCOMING RN
--- NOTE | 2021-05-28 05:45 | NUR ---
NO CHANGES WITH FRANCHESKA OVERNIGHT. HE IS ALERT AND ORIENTED TIMES 2-3, AND VERY PLEASANT AMD COOPERATIVE WITH CARE. HE DOES CONTINUE TO DWELL ON HIS BOWELS. LAST BM WAS SOFT AND FORMED YESTERDAY AFTERNOON, DAVILA CATHETER DRAINING CLEAR YELLOW URINE. NO COMPLAINTS OF PAIN OR DISCOMFORT. SLEPT WELL WAKING ONLY TO HAVE VITAL SIGNS AND LABS DRAWN THEN RIGHT BACK TO SLEEP
--- NOTE | 2021-05-29 03:59 | NUR ---
no changes overnight for Salas. No complaints of pain or discomfort. Went to bed around 2100 and slept until only around 0400 then got OOB. A&OX3-4 pleasant and cooperative with care
--- NOTE | 2021-05-30 06:03 | NUR ---
NO CHANGES WITH FRANCHESKA OVERNIGHT. NO COMPLAINTS OF PAIN OR DISCOMFORT. SLEPT WELL IN THE BED FOR ABOUT 3/4 OF THE NIGHT, THEN UP IN HIS BEDSIDE CHAIR. CLEAR YELLOW URINE IN DAVILA CATHETER. DID REQUEST [employer]ETH[employer] AT HS FOR GAS.
--- NOTE | 2021-05-30 08:09 | NUR ---
Amelie with [facility] sent me a message Sunday afternoon that she spoke with Salas' niece Janie and states that she will be in contact with Amelie on Sunday to finish the intake process. I plan to continue to follow up with Ashley from [facility].
--- NOTE | 2021-05-30 16:22 | NUR ---
Margo Hughes - [facility] sales compensation analyst returned my call this afternoon. She states that she followed up with Ashley ([facility]) and again was going to review Salas's case with her care team to confirm he is appropriate for placement in their Adult Foster Home. Margo also states that Olga Lidia Jones ([facility] relief worker) had planned to request that the niece help Salas be his own payee by helping him write his own checks to pay monthly fees. Neither Ashley or Olga Lidia have returned by calls today. I have not heard from Amelie with [facility] either.
--- NOTE | 2021-05-30 16:28 | NUR ---
I just received a call from Amelie with [facility]. She has not heard from Salas' niece or nephew today. Per Amelie - her nurse states that they will come to [facility] tomorrow to do intake assessments and Salas will be able to move to [facility] tomorrow. I do not anticipate this actually happening due to the past few weeks of [facility] stating he can move-in and has yet to transfer him to their facility.
--- NOTE | 2021-05-30 16:29 | NUR ---
Amelie with [facility] also stated that the Nurse with [facility] will accept him with his own signatures and as his own payee.
--- NOTE | 2021-05-31 03:52 | NUR ---
SHIFT SUMMARY FRANCHESKA PRITCHARD REMAINED STABLE ALL NIGHT.TOOK ALL HIS MEDS, SLEPT MOST OF THE NIGHT.
--- NOTE | 2021-05-31 11:24 | NUR ---
OFFERED Pt A SHOWER LAST TWO SHIFTS I HAVE WORKED, Pt IS FIXATED ON HAVING A BM. AND KEEPS STATING HE WILL SHOWER TOMORROW, HE SAID THE SAME THING THE LAST TWO DAYS. Pt IS CURRENTLY IND IN RM AND A/O X4 SO HE WILL NOT ALLOW FOR A BATH OR SHOWER.
--- NOTE | 2021-05-31 15:54 | NUR ---
SHIFT SUMMARY PATIENT IS ALERT AND ORIENTED X3. PATIENT IS PLEASENT AND COOPERATIVE WITH CARE. PATIENT HAS HAD NO ACUTE EVENTS THIS SHIFT. VITAL SIGNS REVIEWED. PATIENT HAS HAD NO COMPLAINTS OF PAIN, NAUSEA, SOB, VOMITTING THIS SHIFT. CALL LIGHT IN PLACE. BED IN LOCKED AND LOWEST POSITION. WILL MONITOR UNTIL SHIFT CHANGE.
--- NOTE | 2021-06-01 06:15 | NUR ---
SHIFT SUMMARY ASSUMED CARE AT 1900. NO ACUTE EVENTS OVERNIGHT. PT RESTED WELL. SCHEDULED MEDICATIONS ADMINISTERED ORDERED. PT DENIED PAIN AND DISCOMFORT WHEN ASKED. RFA IV SITE BENIGN AND DRESSING INTACT. DAVILA CATHETER PATENT, DRAINING YELLOW URINE VIA GRAVITY. BED IS IN LOW POSITION WITH THE CALL LIGHT WITHIN EASY REACH. WILL CONTINUE TO MONITOR.
--- NOTE | 2021-06-02 03:57 | NUR ---
SHIFT SUMMARY PT IS A 80 Y/O MALE, ORIGINALLY ADMITTED FOR SEPSIS AND CURRENTLY AWAITING PLACEMENT. HE IS A&O X 3, WITH A HX OF AUTISM. INDEPENDENT IN THE ROOM. NO C/O ACUTE PAIN, NAUSEA OR SOB. VITAL SIGNS STABLE. NO ACUTE CHANGES IN PT CONDITION NOTED DURING THE NIGHT. WILL CONTINUE TO MONITOR AND TREAT PER EMAR UNTIL HAND OFF TO DAY SHIFT RN.
--- NOTE | 2021-06-02 12:40 | NUR ---
Spiritual care visit conducted. Patient is sitting on a chair and alert. PAtient tells me about his long stay in the hospital and what led to his admission into the hospital. He tells me about his nephew and two nieces that have contact with him. He explains about the family unit complications and his life from childhood to present and the deaths of his immediate family. Patient expresses that he is "a bit down" today and so we unpack the causes (mostly centered around loneliness and uncertainty of the future) and some paths to move up out of it. He shares about his L[employer] belief system and how he found community in the [employer]. I reinforce helpful attitudes and practices and provide companionship, gentle probation counselor and grief support. Patient responds well and shows signs of an elevated mood.
--- NOTE | 2021-06-03 06:12 | NUR ---
SHIFT SUMMARY PT IS A 80 Y/O FEMALE, ADMITTED FOR SEPSIS AND CURRENTLY AWAITING PLACEMENT. HE IS A&O X 3, WITH A HX OF AUTISM, INDEPENDENT IN THE ROOM. NO C/O PAIN, NAUSEA OR SOB. MEDICATED FOR GAS. VITAL SIGNS STABLE. NO ACUTE CHANGES IN PT CONDITION NOTED DURING THE NIGHT. WILL CONTINUE TO MONITOR AND TREAT PER EMAR UNTIL HAND OFF TO DAY SHIFT RN.
--- NOTE | 2021-06-03 16:08 | NUR ---
Per Sherin Espinoza ( patient's legal guardian) move-in paperwork for [facility] has been completed and patient has been scheduled with [facility] to move in June 07.
--- NOTE | 2021-06-03 17:25 | NUR ---
SUMMARY PT SITTING UP IN THE CHAIR AT THE BEDSIDE, PT HAS BEEN PLEASANT AND COOPERATIVE WITH CARE T/O THE DAY, DENIES ANY PAIN OR SOB, NO COMPLAINTS, CARE MANAGEMENT WORKING ON A SAFE DISCHARGE PLAN, VSS, WILL CONT TO MONITOR
--- NOTE | 2021-06-04 06:15 | NUR ---
SHIFT SUMMARY PATIENT ALERT AND ORIENTED X3. HAD NO COMPLAINTS OF PAIN OR SHORTNESS OF BREATH. NO ACUTE ISSUES NOTED OVERNIGHT. CALL LIGHT WITHIN REACH. REPORT GIVEN TO ONCOMING RN.
--- NOTE | 2021-06-04 16:17 | NUR ---
SHIFT SUMMARY PATIENT IS ALERT AND ORIENTED X2-3. PATIENT IS PLEASENT AND COOPERATIVE WITH CARE. PATIENT HAS HAD NO COMPLAINTS OF PAIN, NAUSEA, SOB OR VOMITTING THIS SHIFT. CARE MANAGEMENT IS FOLLOWING PATIENT TO CREATE DISCHARGE PLAN. PATIENT HAS HAD NO ACUTE EVENTS THIS SHIFT. VITAL SIGNS REVIEWED. BED IN LOCKED AND LOWEST POSITION. CALL LIGHT IN PLACE. WILL MONITOR UNTIL SHIFT CHANGE.
--- NOTE | 2021-06-05 08:00 | NUR ---
pt sitting up in a chair, a/ox3, pleasant and cooperative with care, follows commands well, denies pain, states he's just trying to relax, ate some breakfast, lungs are clear, r/a, ambulates in room with sba, maya cath draining clear yellow urine, skin c/w/d, maew, ambulates with a walker, call light in reach.
--- NOTE | 2021-06-05 09:00 | NUR ---
pt did not tolerate his lovenox shot very well, caused him some distress, and could not keep his fingers out of the area to be injected, Dr. Cronin was notified, and d/c'd the injection. call light in reach.
--- NOTE | 2021-06-05 18:28 | NUR ---
pt has no acute changes this shift, moves around in his room, when asked if he needs anything he says im just relaxing, dont need anything. call light in reach.
[2021-06-06] MEDS ORDERED: FINA5 PO (11:14)
[2021-06-06] MEDS ORDERED: MELO7.5 PO (11:15)
[2021-06-06] MEDS ORDERED: PANT20 PO (11:16)
[2021-06-06] MEDS ORDERED: TAMS.4ER PO (11:16)
[2021-06-06] MEDS ORDERED: DOCU100 PO (11:19)
[2021-06-06] MEDS ORDERED: Adult Glycerin1 EACH PR (11:19)
[2021-06-06] MEDS ORDERED: MIRALAX17 GM PO (11:21)
--- NOTE | 2021-06-06 12:22 | NUR ---
DISCHARGE PATIENT TRANSPORTED VIA WHEELCHAIR TO [facility]. DISCHARGE INSTRUCTIONS EXPLAINED TO PATIENT. PATIENT STATED UNDERSTANDING. PACKET SENT WITH PATIENT. NO IV AT TIME OF DISCHARGE. MEDICATIONS FAXED TO [facility]. ANN AND [facility] TO SCHEDULE FOLLOW UP APPOINTMENTS. BELONGINGS SENT WITH PATIENT.
== END 2021-06-06 12:21 | disposition home or self-care (01) | DRG 698 ==
LOC: ER 18:28 → ERHOLD 18:29 → ER 23:10 → ERHOLD 23:10 → MEDS 03-27 12:55 → ENPENDDIS 06-06 10:31 → MEDS 06-06 12:21
PROVIDERS: Family Medicine; Hospitalist; Internal Medicine; Physician Assistant; Student in an Organized Health Care Education/Training Program; ADMIT Internal Medicine
PROC: 0S9D3ZX Drainage of Left Knee Joint, Percutaneous Approach, Diagnostic (ICD-10-PCS; principal; 2021-04-20)
DX: T83.511A Infection and inflammatory reaction due to indwelling urethral catheter, initial encounter (principal); E43 Unspecified severe protein-calorie malnutrition; A41.59 Other Gram-negative sepsis; Z68.1 Body mass index [BMI] 19.9 or less, adult; R64 Cachexia; E87.2 Acidosis; Z66 Do not resuscitate; N17.9 Acute kidney failure, unspecified; N30.00 Acute cystitis without hematuria; F84.0 Autistic disorder; C79.51 Secondary malignant neoplasm of bone; I95.9 Hypotension, unspecified; R33.8 Other retention of urine; D53.9 Nutritional anemia, unspecified; Z28.21 Immunization not carried out because of patient refusal; M25.462 Effusion, left knee; C61 Malignant neoplasm of prostate; K59.00 Constipation, unspecified; N40.1 Benign prostatic hyperplasia with lower urinary tract symptoms; Z79.899 Other long term (current) drug therapy; Z87.891 Personal history of nicotine dependence; Y84.6 Urinary catheterization as the cause of abnormal reaction of the patient, or of later complication, without mention of misadventure at the time of the procedure
CPT/HCPCS: 20611; 36415; 51702; 71045; 73560-LT; 74019; 74176; 78306; 80048; 80053; 80069; 81001; 82947; 83605; 83735; 84100; 84153; 85025; 87040; 87070; 87075; 87077; 87086; 87186; 87205; 89051; 89060; 92507; 92523; 96365; 96366; 96367; 96372; 96375; 97110; 97116; 97162; 97165; 97530; 97535; 99285-25; A9270; A9503; C9113; J0696; J1650; J1885; J2270; J3370; J7030; J7050

== ENCOUNTER → 2021-06-15 | Outpatient (CLI) | payer MEDICARE, OTHER ==
[~2021-06-15] MED LIST changes: +Adult Glycerin1 EACH PR; +DOCU100 PO; +FINA5 PO; +FLUO10 PO; +MELO7.5 PO; +MIRALAX17 GM PO; +PANT20 PO
== END ==
LOC: LAB SHORT 11:30
DX: R31.0 Gross hematuria (principal)
CPT/HCPCS: 87077; 87086; 87186

== ENCOUNTER 2021-07-09 08:40 | Emergency (ER) | payer MEDICARE, OTHER ==
[~2021-07-09] VITALS: Ht 180.3 cm; Wt 52.2 kg
[2021-07-09 09:19] LABS: BASOPHILS ABSOLUTE AUTO 0.03 K/mm3 (0.00-0.23); BASOPHILS PERCENT AUTO 1 % (0-2); EOSINOPHILS ABSOLUTE AUTO 0.13 K/mm3 (0.00-0.68); EOSINOPHILS PERCENT AUTO 3 % (0-6); Hematocrit 38.5 % (37.0-53.0); Hemoglobin 12.2 g/dL (13.5-17.5); IMMATURE GRAN ABSOLUTE AUTO 0.01 K/mm3 (0.00-0.10); IMMATURE GRAN PERCENT AUTO 0 % (0-1); LYMPHOCYTES ABSOLUTE AUTO 0.52 K/mm3 (0.84-5.20); LYMPHOCYTES PERCENT AUTO 13 % (21-46); MONOCYTES ABSOLUTE AUTO 0.37 K/mm3 (0.16-1.47); MONOCYTES PERCENT AUTO 9 % (4-13); Mean Corpuscular HGB 29.7 pg (26.0-34.0); Mean Corpuscular HGB Conc 31.7 g/dL (31.5-36.5); Mean Corpuscular Volume 94 fL (80-100); Mean Platelet Volume 9.8 fL (9.1-12.4); NEUTROPHILS PERCENT AUTO 74 % (41-73); Platelet Count 259 K/mm3 (150-400); RDW Coefficient Variation 14.5 % (11.7-14.2); RDW Standard Deviation 49.5 fL (35.1-46.3); Red Blood Cell Count 4.11 M/mm3 (4.30-5.90); White Blood Cell Count 4.06 K/mm3 (4.00-11.30)
[2021-07-09 09:33] LABS: Source, Urine Foley catheter
[2021-07-09 09:38] LABS: Appearance, Urine Cloudy (Clear); Bilirubin, Urine Neg (Neg); Blood, Urine 5+ (Neg); Color, Urine Amber (P-Yellow); Glucose Qualitative, Urine Neg (Neg); Ketones, Urine 1+ (Neg); Leukocyte Esterase, Urine 3+ (Neg); Nitrite, Urine Pos (Neg); Protein, Urine 3+ (Neg); Urobilinogen, Urine 2+ (Normal); pH, Urine 6.5 (5.0-8.0)
[2021-07-09 09:38] LABS: Alanine Aminotransfer (ALT/SGP 12 U/L (12-78); Albumin, Blood 3.1 g/dL (3.4-5.0); Albumin/Globulin Ratio 0.7 (0.8-1.8); Alk Phos 243 U/L (50-136); Anion Gap 4 mmol/L (6-16); Aspartate Aminotrans (AST/SGOT 20 U/L (12-37); Bilirubin, Total 0.4 mg/dL (0.1-1.0); Blood Urea Nitrogen 27 mg/dL (8-24); Bun/Creatinine Ratio 31.6 (12.0-20.0); CO2, Blood 31 mmol/L (21-32); Calcium, Blood 9.2 mg/dL (8.5-10.1); Chloride, Blood 104 mmol/L (98-108); Creatinine, Blood 0.85 mg/dL (0.60-1.20); Globulin, Blood 4.3 g/dL (2.2-4.0); Glomerular Filtration Rate >60 (60-); Glucose, Blood 136 mg/dL (70-99); Potassium, Blood 4.5 mmol/L (3.5-5.5); Sodium, Blood 139 mmol/L (136-145); Total Protein, Blood 7.4 g/dL (6.4-8.2)
[2021-07-09 09:45] LABS: Red Blood Cells, Urine TNTC /hpf (0-2)
[2021-07-09 09:48] LABS: Mucus Light (0-Heavy)
[2021-07-09 09:50] LABS: Bacteria Many /hpf; Squamous Epithelial Cells Few /hpf (Few); White Blood Cells, Urine 50-100 /hpf (0-5)
[2021-07-09 09:58] LABS: RBC Cast 0-2 /lpf (0)
[2021-07-09] MEDS ORDERED: CEFP200 PO (10:18)
== END 2021-07-09 11:45 | disposition home or self-care (01) ==
LOC: ER 08:40
PROVIDERS: Student in an Organized Health Care Education/Training Program
DX: N39.0 Urinary tract infection, site not specified (principal); Z79.899 Other long term (current) drug therapy; Z87.891 Personal history of nicotine dependence
CPT/HCPCS: 36415; 80053; 81001; 83605; 85025; 87077; 87086; 87186; 93005; 93010; 99283-25; A9270; J7030

== ENCOUNTER 2021-09-04 11:17 | Emergency (ER) | payer MEDICARE, OTHER ==
[~2021-09-04] VITALS: Ht 180.3 cm; Wt 52.6 kg
[~2021-09-04 11:17] MED LIST changes: +CEFP200 PO
[2021-09-04 11:48] LABS: BASOPHILS ABSOLUTE AUTO 0.03 K/mm3 (0.00-0.23); BASOPHILS PERCENT AUTO 0 % (0-2); EOSINOPHILS PERCENT AUTO 0 % (0-6); Hematocrit 34.9 % (37.0-53.0); Hemoglobin 11.3 g/dL (13.5-17.5); IMMATURE GRAN ABSOLUTE AUTO 0.06 K/mm3 (0.00-0.10); IMMATURE GRAN PERCENT AUTO 1 % (0-1); LYMPHOCYTES ABSOLUTE AUTO 0.52 K/mm3 (0.84-5.20); LYMPHOCYTES PERCENT AUTO 5 % (21-46); MONOCYTES ABSOLUTE AUTO 0.94 K/mm3 (0.16-1.47); MONOCYTES PERCENT AUTO 9 % (4-13); Mean Corpuscular HGB 29.4 pg (26.0-34.0); Mean Corpuscular HGB Conc 32.4 g/dL (31.5-36.5); Mean Corpuscular Volume 91 fL (80-100); Mean Platelet Volume 9.9 fL (9.1-12.4); NEUTROPHILS ABSOLUTE AUTO 8.81 K/mm3 (1.96-9.15); NEUTROPHILS PERCENT AUTO 85 % (41-73); Platelet Count 257 K/mm3 (150-400); RDW Standard Deviation 50.3 fL (35.1-46.3); Red Blood Cell Count 3.85 M/mm3 (4.30-5.90); White Blood Cell Count 10.36 K/mm3 (4.00-11.30)
[2021-09-04 12:10] LABS: Alanine Aminotransfer (ALT/SGP 28 U/L (12-78); Albumin, Blood 2.9 g/dL (3.4-5.0); Albumin/Globulin Ratio 0.6 (0.8-1.8); Alk Phos 226 U/L (50-136); Anion Gap 6 mmol/L (6-16); Aspartate Aminotrans (AST/SGOT 48 U/L (12-37); Bilirubin, Total 0.5 mg/dL (0.1-1.0); Blood Urea Nitrogen 32 mg/dL (8-24); Bun/Creatinine Ratio 30.5 (12.0-20.0); CO2, Blood 26 mmol/L (21-32); Calcium, Blood 8.4 mg/dL (8.5-10.1); Chloride, Blood 101 mmol/L (98-108); Creatinine, Blood 1.05 mg/dL (0.60-1.20); Globulin, Blood 4.8 g/dL (2.2-4.0); Glomerular Filtration Rate >60 (60-); Glucose, Blood 200 mg/dL (70-99); Potassium, Blood 4.4 mmol/L (3.5-5.5); Sodium, Blood 133 mmol/L (136-145); Total Protein, Blood 7.7 g/dL (6.4-8.2)
[2021-09-04] MEDS ORDERED: LEVFLO500 PO (12:48)
[2021-09-04 12:58] LABS: Source, Urine Foley catheter
[2021-09-04 13:12] LABS: Appearance, Urine Hazy (Clear); Bilirubin, Urine Neg (Neg); Blood, Urine 4+ (Neg); Color, Urine Yellow (P-Yellow); Glucose Qualitative, Urine Neg (Neg); Ketones, Urine Neg (Neg); Leukocyte Esterase, Urine 3+ (Neg); Nitrite, Urine Pos (Neg); Protein, Urine 3+ (Neg); Urobilinogen, Urine NORM (Normal)
[2021-09-04 13:40] LABS: Amorphous Light (0-Heavy); Bacteria Many /hpf; Squamous Epithelial Cells Rare /hpf (Few); White Blood Cells, Urine 25-50 /hpf (0-5)
[2021-09-04 13:41] LABS: Granular Casts 0-2 /lpf (0)
== END 2021-09-04 15:13 | disposition home or self-care (01) ==
LOC: ER 11:17
PROVIDERS: Physician Assistant
DX: N39.0 Urinary tract infection, site not specified (principal)
CPT/HCPCS: 36415; 80053; 81001; 85025; 87077; 87086; 87186; 99284; A9270; J7030

== ENCOUNTER 2021-11-09 10:33 | Emergency (ER) | payer MEDICARE, OTHER ==
[~2021-11-09] VITALS: Ht 180.3 cm; Wt 51.3 kg
[~2021-11-09 10:33] MED LIST changes: +LEVFLO500 PO
[2021-11-09 11:08] LABS: BASOPHILS ABSOLUTE AUTO 0.02 K/mm3 (0.00-0.23); BASOPHILS PERCENT AUTO 0 % (0-2); EOSINOPHILS ABSOLUTE AUTO 0.03 K/mm3 (0.00-0.68); EOSINOPHILS PERCENT AUTO 0 % (0-6); Hematocrit 35.3 % (37.0-53.0); Hemoglobin 11.3 g/dL (13.5-17.5); IMMATURE GRAN ABSOLUTE AUTO 0.05 K/mm3 (0.00-0.10); IMMATURE GRAN PERCENT AUTO 1 % (0-1); LYMPHOCYTES ABSOLUTE AUTO 1.12 K/mm3 (0.84-5.20); LYMPHOCYTES PERCENT AUTO 12 % (21-46); MONOCYTES ABSOLUTE AUTO 0.78 K/mm3 (0.16-1.47); MONOCYTES PERCENT AUTO 8 % (4-13); Mean Corpuscular HGB 28.6 pg (26.0-34.0); Mean Corpuscular Volume 89 fL (80-100); Mean Platelet Volume 9.4 fL (9.1-12.4); NEUTROPHILS ABSOLUTE AUTO 7.42 K/mm3 (1.96-9.15); NEUTROPHILS PERCENT AUTO 79 % (41-73); Platelet Count 337 K/mm3 (150-400); RDW Coefficient Variation 14.7 % (11.7-14.2); RDW Standard Deviation 47.9 fL (35.1-46.3); Red Blood Cell Count 3.95 M/mm3 (4.30-5.90); White Blood Cell Count 9.42 K/mm3 (4.00-11.30)
[2021-11-09 11:25] LABS: Albumin, Blood 2.8 g/dL (3.4-5.0); Albumin/Globulin Ratio 0.6 (0.8-1.8); Bilirubin, Total 0.5 mg/dL (0.1-1.0); Bun/Creatinine Ratio 22.2 (12.0-20.0); Calcium, Blood 8.7 mg/dL (8.5-10.1); Creatinine, Blood 0.86 mg/dL (0.60-1.20); Globulin, Blood 4.7 g/dL (2.2-4.0); Potassium, Blood 4.6 mmol/L (3.5-5.5); Total Protein, Blood 7.5 g/dL (6.4-8.2)
[2021-11-09 12:33] LABS: Source, Urine Foley catheter
[2021-11-09 12:51] LABS: Appearance, Urine Cloudy (Clear); Bilirubin, Urine Neg (Neg); Blood, Urine 5+ (Neg); Color, Urine Yellow (P-Yellow); Glucose Qualitative, Urine Neg (Neg); Ketones, Urine Neg (Neg); Leukocyte Esterase, Urine 3+ (Neg); Nitrite, Urine Neg (Neg); Protein, Urine 2+ (Neg); Specific Gravity, Urine 1.015 (1.003-1.022); Urobilinogen, Urine NORM (Normal)
[2021-11-09 13:25] LABS: White Blood Cells, Urine TNTC /hpf (0-5)
[2021-11-09 13:27] LABS: Bacteria Many /hpf; Squamous Epithelial Cells Not Seen /hpf (Few)
--- NOTE | 2021-11-09 14:44 | NUR ---
Visit made to ER#2 with CM after a review of [facility] notes & EMR for admission here in May. Hussain known to me from previous admission. He is alert and oriented, very pleasant and child like. He is autistic per previous H&P and PN reviewed. Pt's public guardian, Lashell is at bedside. She states that bx of prostate done recently and urologist phone appointment to get results is next week. Lashell states that Urologist has not sent results to PCP. This bx appointment was originaly scheduled earlier in the Spring but Hussain did not want to go. Hussain stated "it was cold and rainy that day." Lashell states she was able to convince him to reschedule a month later. Lashell states they have known that prostate cancer was stage IV prior to today but no oncology referral was made. She was told that is was a slow growing cancer. She understands from ER DR that metastasis has progressed significantly since studies done in May. Lashell states urologist wanted bx results known prior to Oncology referral. Guardian is favoring a plan for palliation and hospice. Hussain is interested in hormone therapy to slow progression and help with symptoms per his understanding of one of the options his Drs have discussed with him. I recommended that if decision is made to explore palliative therapy for pt's cancer, Lashell should call PCP and ask for an oncology consult JOSE.In the mean time, [facility] OP Palliative care referral to be made by CM today for OP f/u & s/s management. Hussain initially denied pain during s/s assessment, chief c/o "a lot of gas". He did acknowledge that he is experiencing some pelvic pain, lower abd pressure and cramping. Pt also found to have a UTI and will be d/c'd back to [facility] with an antibiotic. CM making arrangements for d/c and f/u care per guardian's chosen plan.
[2021-11-09] MEDS ORDERED: CEFP200 PO (14:53)
== END 2021-11-09 16:00 | disposition home or self-care (01) ==
LOC: ER 10:33
PROVIDERS: Emergency Medicine
DX: N21.0 Calculus in bladder (principal); N13.30 Unspecified hydronephrosis; N39.0 Urinary tract infection, site not specified; F84.0 Autistic disorder; C79.51 Secondary malignant neoplasm of bone; D64.9 Anemia, unspecified; Z79.899 Other long term (current) drug therapy
CPT/HCPCS: 36415; 74177; 80053; 81001; 83690; 85025; 96374; 99284-25; J0696; J7030; Q9967